=== PATIENT | female | born 1970 | race Caucasian/White ===

== ENCOUNTER 2021-01-19 10:11 | Outpatient (CLI) | payer OTHER, SELFPAY ==
[2021-01-19 10:24] LABS: Basophils Absolute Auto 0.06 K/mm3 (0.00-0.10); Basophils Percent Auto 0.6 % (0.0-1.0); Eosinophils Absolute Auto 0.16 K/mm3 (0.02-0.50); Eosinophils Percent Auto 1.7 % (1.0-6.0); Hematocrit 41.7 % (35.0-49.0); Hemoglobin 13.7 g/dL (12.0-15.0); Immature Granulocyte Absolute 0.04 K/mm3 (0.00-0.00); Immature Granulocyte Percent A 0.4 % (0.0-0.0); Lymphocytes Absolute Auto 2.76 K/mm3 (1.10-4.50); Lymphocytes Percent Auto 28.5 % (18.0-42.0); Mean Corpuscular HGB Conc 32.9 g/dL (32.0-36.0); Mean Corpuscular Hemoglobin 32.2 pg (27.0-31.0); Mean Corpuscular Volume 97.9 fL (78.0-102.0); Mean Platelet Volume 9.4 fl (9.2-11.8); Monocytes Absolute Auto 0.59 K/mm3 (0.10-0.90); Monocytes Percent Auto 6.1 % (2.0-11.0); Neutrophils Absolute Auto 6.1 K/mm3 (1.7-7.2); Neutrophils Percent Auto 62.7 % (50.0-70.0); Platelet Count Result 301 K/mm3 (150-420); Red Blood Count 4.26 M/mm3 (4.20-5.40); Red Cell Distribution Width 14.1 % (11.6-14.4); White Blood Count 9.7 K/mm3 (4.8-10.8)
[2021-01-19 10:25] LABS: Add Urine Microscopic? NO; Appearance Urine Clear (Clear); Bilirubin Urine Negative (Negative); Blood Urine Negative (Negative); Color Urine Yellow (Yellow); Glucose Urine UA Negative (Negative); Ketones Urine Negative (Negative); Leukocyte Esterase Ur Negative LEU/UL (Negative); Nitrate Urine Negative (Negative); Protein Urine Negative (Negative); Specific Grav Ur 1.025 (1.010-1.020); Urobilinogen Urine 0.2 mg/dL (0.2-1.0); pH Urine 5.5 (5.0-8.0)
[2021-01-19 11:23] LABS: Alanine Aminotransferase 44 U/L (14-59); Albumin Level 3.6 g/dL (3.4-5.0); Alkaline Phosphatase 65 U/L (46-116); Anion Gap 7 mmol/L (8-16); Aspartate Amino Transferase 21 U/L (15-37); Bilirubin,Total 0.2 mg/dL (0.00-1.00); Blood Urea Nitrogen 13 mg/dL (7-18); Calcium 9.1 mg/dL (8.5-10.1); Carbon Dioxide 27 mmol/L (21-32); Chloride 102 mmol/L (98-108); Cholesterol 232 mg/dL (0-200); Estimated Glomerular Filt Rate > 60; Glucose 95 mg/dL (70-99); HDL Direct 47 mg/dL (40-60); LDL Cholesterol Calculated 140 mg/dL (<130); Osmolality Calculated 282 mOsm/kg (285-295); Potassium 4.4 mmol/L (3.5-5.1); Sodium 136 mmol/L (136-145); Thyroid Stimulating Hormone 2.35 uIU/mL (0.36-3.74); Total Protein 6.7 g/dL (6.4-8.2); Triglycerides 227 mg/dL (0-150)
[2021-01-19 11:42] LABS: Free T4 Free Thyroxine 0.85 ng/dL (0.76-1.46)
[2021-01-24 08:48] LABS: Immunoglobulin E 10 kU/L (<=114)
[2021-01-24 20:44] LABS: Immunoglobulin A 242 mg/dL (47-310); Immunoglobulin G 453 mg/dL (600-1640); Immunoglobulin M 168 mg/dL (50-300)
== END 2021-01-19 10:12 | disposition home or self-care (01) ==
PROVIDERS: PCP Internal Medicine; Visit Provider Internal Medicine
DX: Z00.00 Encounter for general adult medical examination without abnormal findings (principal); D80.9 Immunodeficiency with predominantly antibody defects, unspecified
CPT/HCPCS: 36415; 80053; 80061; 81003; 82784; 82785; 84439; 84443; 85025

== ENCOUNTER 2021-07-13 07:25 | Outpatient (CLI) | payer OTHER, SELFPAY ==
[2021-07-13 07:38] LABS: Add Urine Microscopic? NO; Appearance Urine Clear (Clear); Basophils Absolute Auto 0.07 K/mm3 (0.00-0.10); Basophils Percent Auto 0.7 % (0.0-1.0); Bilirubin Urine Negative (Negative); Blood Urine Negative (Negative); Color Urine Light Yellow (Yellow); Eosinophils Absolute Auto 0.18 K/mm3 (0.02-0.50); Eosinophils Percent Auto 1.7 % (1.0-6.0); Glucose Urine UA Negative (Negative); Hematocrit 47.7 % (35.0-49.0); Hemoglobin 15.4 g/dL (12.0-15.0); Immature Granulocyte Absolute 0.03 K/mm3 (0.00-0.00); Immature Granulocyte Percent A 0.3 % (0.0-0.0); Ketones Urine Negative (Negative); Leukocyte Esterase Ur Negative (Negative); Lymphocytes Absolute Auto 2.87 K/mm3 (1.10-4.50); Mean Corpuscular HGB Conc 32.3 g/dL (32.0-36.0); Mean Corpuscular Hemoglobin 31.2 pg (27.0-31.0); Mean Corpuscular Volume 96.8 fL (78.0-102.0); Mean Platelet Volume 9.5 fl (9.2-11.8); Monocytes Absolute Auto 0.69 K/mm3 (0.10-0.90); Monocytes Percent Auto 6.5 % (2.0-11.0); Neutrophils Absolute Auto 6.8 K/mm3 (1.7-7.2); Neutrophils Percent Auto 63.8 % (50.0-70.0); Nitrate Urine Negative (Negative); Platelet Count Result 348 K/mm3 (150-420); Protein Urine Negative (Negative); Red Blood Count 4.93 M/mm3 (4.20-5.40); Red Cell Distribution Width 14.2 % (11.6-14.4); Specific Grav Ur 1.015 (1.010-1.020); Urobilinogen Urine 0.2 mg/dL (0.2-1.0); White Blood Count 10.6 K/mm3 (4.8-10.8); pH Urine 5.5 (5.0-8.0)
[2021-07-13 08:47] LABS: Alanine Aminotransferase 39 U/L (14-59); Albumin Level 3.9 g/dL (3.4-5.0); Alkaline Phosphatase 78 U/L (46-116); Anion Gap 8 mmol/L (8-16); Aspartate Amino Transferase 15 U/L (15-37); Bilirubin,Total 0.3 mg/dL (0.00-1.00); Blood Urea Nitrogen 15 mg/dL (7-18); Calcium 9.3 mg/dL (8.5-10.1); Carbon Dioxide 29 mmol/L (21-32); Chloride 102 mmol/L (98-108); Cholesterol 267 mg/dL (0-200); Estimated Glomerular Filt Rate > 60; Glucose 100 mg/dL (70-99); HDL Direct 52 mg/dL (40-60); LDL Cholesterol Calculated 158 mg/dL (<130); Osmolality Calculated 288 mOsm/kg (285-295); Potassium 4.3 mmol/L (3.5-5.1); Sodium 139 mmol/L (136-145); Total Protein 7.1 g/dL (6.4-8.2); Triglycerides 283 mg/dL (0-150)
[2021-07-17 11:14] LABS: Immunoglobulin A 266 mg/dL (47-310); Immunoglobulin G 496 mg/dL (600-1640); Immunoglobulin M 191 mg/dL (50-300)
== END 2021-07-13 07:26 | disposition home or self-care (01) ==
LOC: CHSLAB 07:27
PROVIDERS: PCP Internal Medicine; Visit Provider Internal Medicine
DX: E78.2 Mixed hyperlipidemia (principal); I10 Essential (primary) hypertension; D80.9 Immunodeficiency with predominantly antibody defects, unspecified
CPT/HCPCS: 36415; 80053; 80061; 81003; 82784; 85025

== ENCOUNTER 2021-07-30 10:19 | Outpatient (CLI) | payer OTHER, SELFPAY ==
--- NOTE | ~2021-07-30 | CT_ITS ---
EXAMINATION:CT diagnostic chest wo con DATE: 07/30/2021 10:40 INDICATION: Shortness of breath. Lung nodule. TECHNIQUE: Computed tomography (CT) of the chest was performed without intravenous contrast. Automate d exposure control and iterative reconstruction technique were employed. The dose-length product (DLP ) was 66.96 mGy-cm. COMPARISON: Chest CT 09/23/2018 FINDINGS: There is mild emphysema. There is mild atelectasis bilaterally. There is a 7 mm nodule in r ight middle lobe. There is a 3 mm nodule in right upper lobe. There are two 3 mm nodules in left uppe r lobe. These findings are stable from 09/23/18. A calcified right lung nodule is consistent with old granulomatous disease. No pleural effusion. The heart size is normal. No pericardial effusion. There is mild emphysema. There is a benign bone island in T7 vertebral body. IMPRESSION: 1. Chronic pulmonary nodules, consistent with granulomatous disease. 2. Mild emphysema. Reviewed, dictated and finalized at location A.
== END 2021-07-30 10:20 | disposition home or self-care (01) ==
LOC: CHSIMG 10:20
PROVIDERS: PCP Internal Medicine; Visit Provider Internal Medicine
DX: R91.1 Solitary pulmonary nodule (principal)
CPT/HCPCS: 71250

== ENCOUNTER 2021-07-31 09:05 | Outpatient (CLI) | payer OTHER, SELFPAY | END 2021-07-31 09:06 | disposition home or self-care (01) | LOC: CHSCARD 09:06 | PROVIDERS: PCP Internal Medicine; Visit Provider Internal Medicine | DX: R05.9 Cough, unspecified (principal); R06.02 Shortness of breath | CPT/HCPCS: 94060; 94726; 94729; 95012 ==

== ENCOUNTER 2021-09-21 14:15 | Outpatient (CLI) | payer OTHER, SELFPAY ==
[2021-09-21 15:42] LABS: HIV 1 P24 AG Negative (Negative); HIV 1/2 AB Negative (Negative)
[2021-09-25 12:14] LABS: Immunoglobulin G, Serum 496 mg/dL (600-1640); Immunoglobulin G1 273 mg/dL (382-929); Immunoglobulin G2 138 mg/dL (241-700); Immunoglobulin G3 55 mg/dL (22-178); Immunoglobulin G4 11.2 mg/dL (4.0-86.0)
[2021-09-26 02:44] LABS: Absolute CD4 Count 2069 cells/uL (490-1740); Lymphocytes, Absolute 3063 cells/uL (850-3900); Percent CD4 Cells 68 % (30-61)
== END 2021-09-21 14:16 | disposition home or self-care (01) ==
LOC: CHSLAB 14:17
PROVIDERS: PCP Internal Medicine; Visit Provider Internal Medicine Hematology & Oncology
DX: D80.3 Selective deficiency of immunoglobulin G [IgG] subclasses (principal)
CPT/HCPCS: 36415; 82784; 82787; 86361; 86703

== ENCOUNTER 2021-09-25 08:46 | Outpatient (CLI) | payer OTHER, SELFPAY ==
--- NOTE | 2021-09-25 11:00 | NEURO_ITS ---
Impression: # Complains of numbness of thumb and pointing finger. # No Carpal Tunnel Syndrome or ulnar neuropathy. # Normal needle/EMG exam. # Clinical correlation recommended. Nerve Conduction Studies Anti Sensory Summary Table Stim Site NR Peak (ms) P-T Amp (?V) Site1 Site2 Delta-P (ms) Dist (cm) Rell (m/s) Right Median Anti Sensory (2-3nd Digit) Wrist 2.5 90.4 Wrist 2-3nd Digit 2.5 14.0 56 Wrist 2.4 98.9 Wrist 2-3nd Digit 2.5 14.0 56 Right Radial Anti Sensory (Base 1st Digit) Wrist 1.9 46.9 Wrist Base 1st Digit 1.9 0.0 Right Ulnar Anti Sensory (5th Digit) Wrist 2.3 73.5 Wrist 5th Digit 2.3 14.0 61 Motor Summary Table Stim Site NR Onset (ms) O-P Amp (mV) Site1 Site2 Delta-0 (ms) Dist (cm) Rell (m/s) Right Median Motor (Abd Poll Brev) Wrist 2.6 8.6 Elbow Wrist 4.4 26.0 59 Elbow 7.0 4.9 Right Ulnar Motor (Abd Dig Minimi) Wrist 2.6 8.3 A Elbow Wrist 4.0 25.0 63 A Elbow 6.6 6.7 F Wave Studies NR F-Lat (ms) L-R F-Lat (ms) Right Median (Mrkrs) (Abd Poll Brev) 24.97 Right Ulnar (Mrkrs) (Abd Dig Min) 25.92 EMG Side Muscle Nerve Root Ins Act Fibs Amp Dur Recrt Comment Right 1stDorInt Ulnar C8-T1 Nml Nml Nml Nml Nml Right Ext Indicis Radial (Post Int) C7-8 Nml Nml Nml Nml Nml Right Ext Digitorum Radial (Post Int) C7-8 Nml Nml Nml Nml Nml Right BrachioRad Radial C5-6 Nml Nml Nml Nml Nml Right PronatorTeres Median C6-7 Nml Nml Nml Nml Nml Right Abd Poll Brev Median C8-T1 Nml Nml Nml Nml Nml Right ABD Dig Min Ulnar C8-T1 Nml Nml Nml Nml Nml Right Abd Poll Long Radial (Post Int) C7-8 Nml Nml Nml Nml Nml MTDD
== END 2021-09-25 08:47 | disposition home or self-care (01) ==
LOC: ANHNEURO 08:49
PROVIDERS: PCP Internal Medicine; Visit Provider Internal Medicine
DX: G56.01 Carpal tunnel syndrome, right upper limb (principal)
CPT/HCPCS: 95886; 95909

== ENCOUNTER 2021-10-29 13:52 | Outpatient (CLI) | payer OTHER, SELFPAY ==
[2021-10-29 14:19] LABS: Basophils Absolute Auto 0.09 K/mm3 (0.00-0.10); Basophils Percent Auto 0.7 % (0.0-1.0); Eosinophils Absolute Auto 0.12 K/mm3 (0.02-0.50); Eosinophils Percent Auto 0.9 % (1.0-6.0); Hematocrit 44.1 % (35.0-49.0); Hemoglobin 14.5 g/dL (12.0-15.0); Immature Granulocyte Absolute 0.03 K/mm3 (0.00-0.00); Immature Granulocyte Percent A 0.2 % (0.0-0.0); Lymphocytes Absolute Auto 3.39 K/mm3 (1.10-4.50); Lymphocytes Percent Auto 26.3 % (18.0-42.0); Mean Corpuscular HGB Conc 32.9 g/dL (32.0-36.0); Mean Corpuscular Hemoglobin 31.7 pg (27.0-31.0); Mean Corpuscular Volume 96.5 fL (78.0-102.0); Mean Platelet Volume 9.6 fl (9.2-11.8); Monocytes Absolute Auto 0.92 K/mm3 (0.10-0.90); Monocytes Percent Auto 7.1 % (2.0-11.0); Neutrophils Absolute Auto 8.3 K/mm3 (1.7-7.2); Neutrophils Percent Auto 64.8 % (50.0-70.0); Platelet Count Result 356 K/mm3 (150-420); Red Blood Count 4.57 M/mm3 (4.20-5.40); Red Cell Distribution Width 14.5 % (11.6-14.4); White Blood Count 12.9 K/mm3 (4.8-10.8)
[2021-10-29 14:49] LABS: Alanine Aminotransferase 34 U/L (14-59); Albumin Level 4.2 g/dL (3.4-5.0); Alkaline Phosphatase 76 U/L (46-116); Anion Gap 13 mmol/L (8-16); Aspartate Amino Transferase 16 U/L (15-37); Bilirubin,Total 0.3 mg/dL (0.00-1.00); Blood Urea Nitrogen 9 mg/dL (7-18); Calcium 9.5 mg/dL (8.5-10.1); Carbon Dioxide 27 mmol/L (21-32); Chloride 98 mmol/L (98-108); Estimated Glomerular Filt Rate > 60; Glucose 84 mg/dL (70-99); Osmolality Calculated 283 mOsm/kg (285-295); Potassium 3.6 mmol/L (3.5-5.1); Sodium 138 mmol/L (136-145); Total Protein 7.4 g/dL (6.4-8.2)
[2021-11-01 14:19] LABS: Immunoglobulin A 256 mg/dL (47-310); Immunoglobulin G 515 mg/dL (600-1640); Immunoglobulin M 177 mg/dL (50-300)
== END 2021-10-29 13:53 | disposition home or self-care (01) ==
LOC: CHSLAB 13:54
PROVIDERS: PCP Internal Medicine; Visit Provider Internal Medicine Hematology & Oncology
DX: D80.1 Nonfamilial hypogammaglobulinemia (principal)
CPT/HCPCS: 36415; 80053; 82784; 85025

== ENCOUNTER 2021-11-02 07:07 | Outpatient (CLI) | payer OTHER, SELFPAY ==
[2021-11-02 07:47] LABS: Hemoglobin A1C 5.4 % (<5.7)
[2021-11-02 08:02] LABS: Alanine Aminotransferase 31 U/L (14-59); Albumin Level 3.5 g/dL (3.4-5.0); Alkaline Phosphatase 65 U/L (46-116); Anion Gap 10 mmol/L (8-16); Aspartate Amino Transferase 13 U/L (15-37); Bilirubin,Total 0.2 mg/dL (0.00-1.00); Blood Urea Nitrogen 16 mg/dL (7-18); Calcium 9.2 mg/dL (8.5-10.1); Carbon Dioxide 26 mmol/L (21-32); Chloride 104 mmol/L (98-108); Estimated Glomerular Filt Rate > 60; Glucose 99 mg/dL (70-99); Osmolality Calculated 291 mOsm/kg (285-295); Potassium 4.5 mmol/L (3.5-5.1); Sodium 140 mmol/L (136-145); Total Protein 6.7 g/dL (6.4-8.2)
[2021-11-02 09:50] LABS: Bilirubin Direct < 0.1 mg/dL (0-0.2)
[2021-11-02 15:25] LABS: Cholesterol 167 mg/dL (0-200); HDL Direct 53 mg/dL (40-60); LDL Cholesterol Calculated 74 mg/dL (<130); Triglycerides 198 mg/dL (0-150)
== END 2021-11-02 07:08 | disposition home or self-care (01) ==
LOC: CHSLAB 07:08
PROVIDERS: PCP Internal Medicine; Visit Provider Internal Medicine
DX: E78.2 Mixed hyperlipidemia (principal); R73.01 Impaired fasting glucose; E78.5 Hyperlipidemia, unspecified
CPT/HCPCS: 36415; 80053; 80061; 82248; 83036

== ENCOUNTER 2021-11-26 10:57 | Outpatient (CLI) | payer OTHER, SELFPAY ==
[2021-11-26 11:16] LABS: Basophils Absolute Auto 0.07 K/mm3 (0.00-0.10); Basophils Percent Auto 0.6 % (0.0-1.0); Eosinophils Absolute Auto 0.14 K/mm3 (0.02-0.50); Eosinophils Percent Auto 1.2 % (1.0-6.0); Hematocrit 45.5 % (35.0-49.0); Hemoglobin 15.2 g/dL (12.0-15.0); Immature Granulocyte Absolute 0.05 K/mm3 (0.00-0.00); Immature Granulocyte Percent A 0.4 % (0.0-0.0); Lymphocytes Absolute Auto 2.99 K/mm3 (1.10-4.50); Lymphocytes Percent Auto 26.4 % (18.0-42.0); Mean Corpuscular HGB Conc 33.4 g/dL (32.0-36.0); Mean Corpuscular Hemoglobin 31.9 pg (27.0-31.0); Mean Corpuscular Volume 95.6 fL (78.0-102.0); Mean Platelet Volume 9.5 fl (9.2-11.8); Monocytes Absolute Auto 0.68 K/mm3 (0.10-0.90); Neutrophils Absolute Auto 7.4 K/mm3 (1.7-7.2); Neutrophils Percent Auto 65.4 % (50.0-70.0); Platelet Count Result 319 K/mm3 (150-420); Red Blood Count 4.76 M/mm3 (4.20-5.40); Red Cell Distribution Width 14.1 % (11.6-14.4); White Blood Count 11.3 K/mm3 (4.8-10.8)
[2021-11-26 11:52] LABS: Alanine Aminotransferase 32 U/L (14-59); Albumin Level 4.2 g/dL (3.4-5.0); Alkaline Phosphatase 77 U/L (46-116); Anion Gap 14 mmol/L (8-16); Aspartate Amino Transferase 12 U/L (15-37); Bilirubin,Total 0.3 mg/dL (0.00-1.00); Blood Urea Nitrogen 11 mg/dL (7-18); Calcium 10.1 mg/dL (8.5-10.1); Carbon Dioxide 26 mmol/L (21-32); Chloride 96 mmol/L (98-108); Estimated Glomerular Filt Rate > 60; Glucose 96 mg/dL (70-99); Osmolality Calculated 281 mOsm/kg (285-295); Potassium 4.2 mmol/L (3.5-5.1); Sodium 136 mmol/L (136-145); Total Protein 7.7 g/dL (6.4-8.2)
[2021-11-28 21:17] LABS: Immunoglobulin A 265 mg/dL (47-310); Immunoglobulin G 522 mg/dL (600-1640); Immunoglobulin M 180 mg/dL (50-300)
== END 2021-11-26 10:58 | disposition home or self-care (01) ==
LOC: CHSLAB 10:59
PROVIDERS: PCP Internal Medicine; Visit Provider Internal Medicine Hematology & Oncology
DX: D80.3 Selective deficiency of immunoglobulin G [IgG] subclasses (principal)
CPT/HCPCS: 36415; 80053; 82784; 85025

== ENCOUNTER 2021-11-27 09:08 | Outpatient (CLI) | payer OTHER, SELFPAY ==
[2021-11-27 09:17] VITALS: BMI 29.6
[2021-11-27] MEDS: ACETAMINOPHEN 325 MG TABLET 650 MG PO (09:36)
[2021-11-27] MEDS: diphenhydrAMINE HCl CAP 25 MG CAPSULE PO (09:36)
[2021-11-27 09:37] VITALS: BP 142/85; PULSE 80; RESP 14; TEMP 36.4; O2SAT 98
[2021-11-27] MEDS: IMMUNE GLOBULIN 200 ML IVPB (09:45)
[2021-11-27 10:15] VITALS: BP 152/84; PULSE 78; RESP 14; O2SAT 98
[2021-11-27 10:45] VITALS: BP 148/80; PULSE 78; RESP 14
[2021-11-27 11:15] VITALS: BP 142/80; PULSE 72; RESP 14
[2021-11-27 11:45] VITALS: BP 143/82; PULSE 80; RESP 14
[2021-11-27 12:35] VITALS: BP 142/85; PULSE 80; RESP 14; O2SAT 98
--- NOTE | 2021-11-27 12:36 | PC.NURSE ---
Patient here for IVIG infusion. Education given. No concerns voiced. IVIG infusion administered SEE DEC. Tolerated well. Safe exit of hospital. Will return December 28, 2021 at 11 a.m. for next monthly dose.
== END 2021-11-27 09:09 | disposition home or self-care (01) ==
LOC: CHSTREATRM 09:10
PROVIDERS: PCP Internal Medicine; Visit Provider Internal Medicine Hematology & Oncology
DX: D80.1 Nonfamilial hypogammaglobulinemia (principal)
CPT/HCPCS: 96365; 96366; A9270; J1459

== ENCOUNTER 2021-12-13 07:13 | Outpatient (CLI) | payer OTHER, SELFPAY ==
--- NOTE | ~2021-12-13 | MM_ITS ---
EXAMINATION: MM screening leidy BI w cristel HISTORY: Screening mammogram TECHNIQUE: Craniocaudal and mediolateral oblique 3-D tomosynthesis images were obtained and synthetic 2-D images were generated. CAD analysis was submitted and interpreted. COMPARISON: 02/11/2012 bilateral screening mammogram BREAST PARENCHYMAL COMPOSITION: There are scattered areas of fibroglandular density. FINDINGS: There is no evidence of suspicious mass, calcification, or architectural distortion to sugg est malignancy in either breast. There has been no suspicious interval change. IMPRESSION: 1. No mammographic evidence of malignancy. 2. Recommend routine screening mammography in one year. BI-RADS Category 1: Negative Reviewed, dictated and finalized at location A. 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
== END 2021-12-13 07:14 | disposition home or self-care (01) ==
LOC: CHSIMG 07:14
PROVIDERS: PCP Internal Medicine; Visit Provider Obstetrics & Gynecology
DX: Z12.31 Encounter for screening mammogram for malignant neoplasm of breast (principal)
CPT/HCPCS: 77063; 77067

== ENCOUNTER 2021-12-24 16:13 | Outpatient (CLI) | payer OTHER, SELFPAY ==
[2021-12-24 17:25] LABS: Basophils Absolute Auto 0.07 K/mm3 (0.00-0.10); Basophils Percent Auto 0.6 % (0.0-1.0); Eosinophils Absolute Auto 0.14 K/mm3 (0.02-0.50); Eosinophils Percent Auto 1.3 % (1.0-6.0); Hematocrit 43.3 % (35.0-49.0); Hemoglobin 13.9 g/dL (12.0-15.0); Immature Granulocyte Absolute 0.03 K/mm3 (0.00-0.00); Immature Granulocyte Percent A 0.3 % (0.0-0.0); Lymphocytes Absolute Auto 3.53 K/mm3 (1.10-4.50); Lymphocytes Percent Auto 32.4 % (18.0-42.0); Mean Corpuscular HGB Conc 32.1 g/dL (32.0-36.0); Mean Corpuscular Hemoglobin 30.9 pg (27.0-31.0); Mean Corpuscular Volume 96.2 fL (78.0-102.0); Mean Platelet Volume 9.5 fl (9.2-11.8); Monocytes Absolute Auto 0.73 K/mm3 (0.10-0.90); Monocytes Percent Auto 6.7 % (2.0-11.0); Neutrophils Absolute Auto 6.4 K/mm3 (1.7-7.2); Neutrophils Percent Auto 58.7 % (50.0-70.0); Platelet Count Result 347 K/mm3 (150-420); White Blood Count 10.9 K/mm3 (4.8-10.8)
[2021-12-24 17:39] LABS: Alanine Aminotransferase 33 U/L (14-59); Albumin Level 3.8 g/dL (3.4-5.0); Alkaline Phosphatase 73 U/L (46-116); Anion Gap 13 mmol/L (8-16); Aspartate Amino Transferase 18 U/L (15-37); Bilirubin,Total 0.2 mg/dL (0.00-1.00); Blood Urea Nitrogen 9 mg/dL (7-18); Calcium 9.2 mg/dL (8.5-10.1); Carbon Dioxide 27 mmol/L (21-32); Chloride 102 mmol/L (98-108); Estimated Glomerular Filt Rate > 60; Glucose 114 mg/dL (70-99); Osmolality Calculated 293 mOsm/kg (285-295); Potassium 3.8 mmol/L (3.5-5.1); Sodium 142 mmol/L (136-145); Total Protein 7.1 g/dL (6.4-8.2)
[2021-12-27 11:46] LABS: Immunoglobulin A 245 mg/dL (47-310); Immunoglobulin G 600 mg/dL (600-1640); Immunoglobulin M 172 mg/dL (50-300)
== END 2021-12-24 16:14 | disposition home or self-care (01) ==
LOC: CHSLAB 16:14
PROVIDERS: PCP Internal Medicine; Visit Provider Internal Medicine Hematology & Oncology
DX: D80.3 Selective deficiency of immunoglobulin G [IgG] subclasses (principal)
CPT/HCPCS: 36415; 80053; 82784; 85025

== ENCOUNTER 2021-12-28 10:38 | Outpatient (CLI) | payer OTHER, SELFPAY ==
[2021-12-28] MEDS: ACETAMINOPHEN 325 MG TABLET 650 MG PO (10:48)
[2021-12-28] MEDS: diphenhydrAMINE HCl CAP 25 MG CAPSULE PO (10:48)
[2021-12-28 11:03] VITALS: BMI 29.6
[2021-12-28 11:04] VITALS: BP 160/80; PULSE 80; RESP 14; TEMP 36.4; O2SAT 98
[2021-12-28 11:50] VITALS: BP 135/88; PULSE 72; RESP 14; O2SAT 98
[2021-12-28 12:20] VITALS: BP 137/85; PULSE 80; RESP 14; O2SAT 97
[2021-12-28 13:00] VITALS: BP 138/85; PULSE 80; RESP 14; O2SAT 98
--- NOTE | 2021-12-28 13:52 | PC.NURSE ---
Patient here for monthly IVIG infusion. Education on medication given. No concerns voiced. IVIG administered- See MAR. tolerated well. Safe exit of hospital. Will return January 25, 2021 1100.
== END 2021-12-28 10:39 | disposition home or self-care (01) ==
PROVIDERS: PCP Internal Medicine; Visit Provider Internal Medicine Hematology & Oncology
DX: D80.1 Nonfamilial hypogammaglobulinemia (principal)
CPT/HCPCS: 96365; 96366; A9270; J1459

== ENCOUNTER 2022-01-28 16:30 | Outpatient (CLI) | payer OTHER, SELFPAY ==
[2022-01-28 17:08] LABS: Basophils Absolute Auto 0.06 K/mm3 (0.00-0.10); Basophils Percent Auto 0.7 % (0.0-1.0); Eosinophils Absolute Auto 0.09 K/mm3 (0.02-0.50); Eosinophils Percent Auto 1.1 % (1.0-6.0); Hematocrit 38.5 % (35.0-49.0); Hemoglobin 12.5 g/dL (12.0-15.0); Immature Granulocyte Absolute 0.03 K/mm3 (0.00-0.00); Immature Granulocyte Percent A 0.4 % (0.0-0.0); Lymphocytes Absolute Auto 3.44 K/mm3 (1.10-4.50); Lymphocytes Percent Auto 41.1 % (18.0-42.0); Mean Corpuscular HGB Conc 32.5 g/dL (32.0-36.0); Mean Corpuscular Hemoglobin 31.5 pg (27.0-31.0); Mean Platelet Volume 9.9 fl (9.2-11.8); Monocytes Absolute Auto 0.58 K/mm3 (0.10-0.90); Monocytes Percent Auto 6.9 % (2.0-11.0); Neutrophils Absolute Auto 4.2 K/mm3 (1.7-7.2); Neutrophils Percent Auto 49.8 % (50.0-70.0); Platelet Count Result 332 K/mm3 (150-420); Red Blood Count 3.97 M/mm3 (4.20-5.40); Red Cell Distribution Width 14.3 % (11.6-14.4); White Blood Count 8.4 K/mm3 (4.8-10.8)
[2022-01-28 17:24] LABS: Alanine Aminotransferase 23 U/L (14-59); Albumin Level 3.4 g/dL (3.4-5.0); Alkaline Phosphatase 66 U/L (46-116); Anion Gap 8 mmol/L (8-16); Aspartate Amino Transferase 15 U/L (15-37); Bilirubin,Total 0.1 mg/dL (0.00-1.00); Blood Urea Nitrogen 9 mg/dL (7-18); Calcium 8.5 mg/dL (8.5-10.1); Carbon Dioxide 26 mmol/L (21-32); Chloride 106 mmol/L (98-108); Estimated Glomerular Filt Rate > 60; Glucose 86 mg/dL (70-99); Osmolality Calculated 287 mOsm/kg (285-295); Potassium 3.7 mmol/L (3.5-5.1); Sodium 140 mmol/L (136-145); Total Protein 6.4 g/dL (6.4-8.2)
[2022-01-31 13:01] LABS: Immunoglobulin A 226 mg/dL (47-310); Immunoglobulin G 539 mg/dL (600-1640); Immunoglobulin M 154 mg/dL (50-300)
== END 2022-01-28 16:31 | disposition home or self-care (01) ==
LOC: CHSLAB 16:32
PROVIDERS: PCP Internal Medicine; Visit Provider Internal Medicine Hematology & Oncology
DX: D80.3 Selective deficiency of immunoglobulin G [IgG] subclasses (principal)
CPT/HCPCS: 36415; 80053; 82784; 85025

== ENCOUNTER 2022-02-01 14:03 | Outpatient (CLI) | payer OTHER, SELFPAY ==
[2022-02-01] MEDS: diphenhydrAMINE HCl CAP 25 MG CAPSULE PO (14:10)
[2022-02-01] MEDS: ACETAMINOPHEN 325 MG TABLET 650 MG PO (14:10)
[2022-02-01] MEDS: IMMUNE GLOBULIN 200 ML IVPB (14:15)
[2022-02-01 14:32] VITALS: BMI 29.6
[2022-02-01 14:33] VITALS: BP 135/88; PULSE 78; RESP 14; TEMP 36.6; O2SAT 98
[2022-02-01 14:45] VITALS: BP 161/85; PULSE 80; RESP 14; TEMP 36.6; O2SAT 98
[2022-02-01 15:15] VITALS: BP 139/80; PULSE 80; RESP 14; O2SAT 98
--- NOTE | 2022-02-01 16:16 | PC.NURSE ---
Patient here for monthly IVIG infusion. Education given. No concerns voiced. Reports done well with last two infusions. IVIG administered. SEE MAR. Tolerated well. Safe exit of hospital. Will return March 01, 2022 at 1445.
[2022-02-01 16:26] VITALS: BP 130/74; PULSE 88; RESP 14; O2SAT 98
== END 2022-02-01 14:04 | disposition home or self-care (01) ==
LOC: CHSTREATRM 14:05
PROVIDERS: PCP Internal Medicine; Visit Provider Internal Medicine Hematology & Oncology
DX: D80.1 Nonfamilial hypogammaglobulinemia (principal)
CPT/HCPCS: 96365; 96366; A9270; J1459

== ENCOUNTER 2022-02-26 17:06 | Outpatient (CLI) | payer OTHER, SELFPAY ==
[2022-02-26 17:33] LABS: Basophils Absolute Auto 0.07 K/mm3 (0.00-0.10); Basophils Percent Auto 0.9 % (0.0-1.0); Eosinophils Absolute Auto 0.19 K/mm3 (0.02-0.50); Eosinophils Percent Auto 2.4 % (1.0-6.0); Hematocrit 39.3 % (35.0-49.0); Hemoglobin 12.8 g/dL (12.0-15.0); Immature Granulocyte Absolute 0.03 K/mm3 (0.00-0.00); Immature Granulocyte Percent A 0.4 % (0.0-0.0); Lymphocytes Absolute Auto 2.98 K/mm3 (1.10-4.50); Lymphocytes Percent Auto 37.3 % (18.0-42.0); Mean Corpuscular HGB Conc 32.6 g/dL (32.0-36.0); Mean Corpuscular Hemoglobin 31.8 pg (27.0-31.0); Mean Corpuscular Volume 97.8 fL (78.0-102.0); Mean Platelet Volume 9.6 fl (9.2-11.8); Monocytes Absolute Auto 0.59 K/mm3 (0.10-0.90); Monocytes Percent Auto 7.4 % (2.0-11.0); Neutrophils Absolute Auto 4.1 K/mm3 (1.7-7.2); Neutrophils Percent Auto 51.6 % (50.0-70.0); Platelet Count Result 281 K/mm3 (150-420); Red Blood Count 4.02 M/mm3 (4.20-5.40); Red Cell Distribution Width 15.4 % (11.6-14.4)
[2022-02-26 17:43] LABS: Alanine Aminotransferase 19 U/L (14-59); Albumin Level 3.6 g/dL (3.4-5.0); Alkaline Phosphatase 64 U/L (46-116); Anion Gap 12 mmol/L (8-16); Aspartate Amino Transferase 26 U/L (15-37); Bilirubin,Total 0.3 mg/dL (0.00-1.00); Blood Urea Nitrogen 8 mg/dL (7-18); Calcium 8.1 mg/dL (8.5-10.1); Carbon Dioxide 22 mmol/L (21-32); Chloride 105 mmol/L (98-108); Estimated Glomerular Filt Rate > 60; Glucose 95 mg/dL (70-99); Osmolality Calculated 286 mOsm/kg (285-295); Potassium 3.4 mmol/L (3.5-5.1); Sodium 139 mmol/L (136-145)
[2022-03-01 11:56] LABS: Immunoglobulin A 242 mg/dL (47-310); Immunoglobulin G 636 mg/dL (600-1640); Immunoglobulin M 170 mg/dL (50-300)
== END 2022-02-26 17:07 | disposition home or self-care (01) ==
PROVIDERS: PCP Internal Medicine; Visit Provider Internal Medicine Hematology & Oncology
DX: D80.3 Selective deficiency of immunoglobulin G [IgG] subclasses (principal)
CPT/HCPCS: 36415; 80053; 82784; 85025

== ENCOUNTER 2022-03-01 14:40 | Outpatient (CLI) | payer OTHER, SELFPAY ==
[2022-03-01 14:51] VITALS: BMI 29.6
[2022-03-01 15:15] VITALS: BP 160/80; PULSE 80; RESP 16; TEMP 36.4; O2SAT 98
[2022-03-01] MEDS: ACETAMINOPHEN 325 MG TABLET 650 MG PO (15:15)
[2022-03-01] MEDS: diphenhydrAMINE HCl CAP 25 MG CAPSULE PO (15:15)
[2022-03-01] MEDS: IMMUNE GLOBULIN 200 ML IVPB (15:25)
[2022-03-01 15:55] VITALS: BP 162/88; PULSE 80; RESP 14; O2SAT 98
[2022-03-01 16:25] VITALS: BP 156/88; PULSE 80; RESP 14; O2SAT 97
[2022-03-01 17:30] VITALS: BP 169/80; PULSE 78; RESP 14; O2SAT 97
--- NOTE | 2022-03-01 17:45 | PC.NURSE ---
Patient here for monthly IVIG infusion. No concerns voiced. IVIG infusion administered see DEC. Tolerated well. Will return March 29, 2022 for next IVIG infusion at 1430. Safe exit of hospital.
== END 2022-03-01 14:41 | disposition home or self-care (01) ==
LOC: CHSTREATRM 14:42
PROVIDERS: PCP Internal Medicine; Visit Provider Internal Medicine Hematology & Oncology
DX: D80.1 Nonfamilial hypogammaglobulinemia (principal)
CPT/HCPCS: 96365; 96366; A9270; J1459

== ENCOUNTER 2022-03-06 20:08 | Emergency (ER) | payer OTHER, SELFPAY ==
--- NOTE | ~2022-03-06 | XR_ITS ---
EXAM: XR ankle RT min 3V, XR foot RT min 3V DATE: 03/06/2022 20:56 HISTORY: lateral ankle and foot pain after fall today . COMPARISON: None available. FINDINGS: Normal mineralization. No fracture or dislocation. No lytic or blastic lesion. Joint space s are maintained. Os navicularis. No erosion or periosteal change. Soft tissues within normal limits. IMPRESSION: No acute osseous finding in the right ankle or foot. Reviewed, dictated and finalized at location K. IMPRESSION: No acute osseous finding in the right ankle or foot.
--- NOTE | 2022-03-06 20:30 | ED.LOWEXIN ---
HPI - Extremity Injury (Lower) General Chief Complaint: Fall Stated Complaint: fall down stairs, pain in R ankle Time Seen by Provider: 03/06/22 20:30 Source: patient History of Present Illness HPI Narrative: 51-year-old female with a history of hypertension, chronic hypokalemia twisted her right ankle while walking at home. She presents to the ER with -- pain and swelling around the right lateral malleolus. Partial weight-bearing. no other injuries noted MD complaint: ankle injury Onset (ago): hour(s) ( 1 hour ago) Injury: Right: ankle Type of Injury: inversion Place: home Severity: moderate Relieving factors: immobilization Exacerbating factors: nothing Other symptoms: none Treatments prior to arrival: cold therapy Related Data Home Medications Medication Instructions Recorded Confirmed albuterol sulfate 90 mcg INHALATION Q4H PRN 03/06/22 03/06/22 alprazolam 0.25 mg PO Q6H PRN 03/06/22 03/06/22 amlodipine 5 mg PO DAILY 03/06/22 03/06/22 atorvastatin 10 mg PO DAILY 03/06/22 03/06/22 citalopram 40 mg PO DAILY 03/06/22 03/06/22 estradiol 1 mg PO DAILY 03/06/22 03/06/22 fluticasone propionate 2 spray INTRANASAL HS 03/06/22 03/06/22 lisinopril-hydrochlorothiazide 2 tablet PO DAILY 03/06/22 03/06/22 nicotine 1 patch TRANSDERMAL DAILY 03/06/22 03/06/22 potassium chloride 10 meq PO DAILY 03/06/22 03/06/22 tiotropium bromide [Spiriva with 1 cap INHALATION DAILY 03/06/22 03/06/22 HandiHaler] Allergies Allergy/AdvReac Type Severity Reaction Status Date / Time No Known Allergies Allergy Mild Unverified 07/31/15 09:18 Review of Systems Review of Systems: All systems reviewed & are unremarkable except as noted in HPI and below Constitutional: Constitutional: Reports as per HPI and Reports no additional constitutional complaints Eyes: Eyes: Reports as per HPI and Reports no additional eye complaints ENT: Reports system reviewed and no additional complaints, except as documented and Reports as per HPI Cardiovascular: Cardiovascular: Reports as per HPI and Reports no additional cardiovascular complaints Respiratory: Respiratory: Reports as per HPI and Reports no additional respiratory complaints Gastrointestinal: Gastrointestinal: Reports as per HPI and Reports no additional gastrointestinal complaints Genitourinary: Genitourinary: Reports no additional female genitourinary complaints and Reports as per HPI Musculoskeletal: Musculoskeletal: Reports no additional musculoskeletal complaints and Reports as per HPI Comments: pain over the right lateral foot/ ankle Integumentary/Breasts: Skin/Breast: Reports system reviewed and no additional complaints, except as docu and Reports as per HPI Neurologic: Reports system reviewed and no additional complaints, except as documented and Reports as per HPI Psychiatric: Psychiatric: Reports no additional psychiatric complaints and Reports as per HPI Endocrine: Endocrine: Reports no additional endocrine complaints and Reports as per HPI Hematologic/Lymphatic: Hematologic/Lymphatic: Reports no additional hematologic/lymphatic complaints and Reports as per HPI Allergic/Immunologic: Allergic/Immunologic: Reports no additional allergic/immunologic complaints and Reports as per HPI [facility] Family History Family History Sibling Family history of cardiovascular disease Family history of thyroid disease Hypertension Family history of chronic obstructive pulmonary disease Mother Diabetes mellitus Hypertension Father Family history of lung cancer Other Family history of allergic disorder Family history of coronary artery disease Family history of malignant neoplasm Social History Social History Smoking status: Current every day smoker Alcohol intake: current Exam Const: General: no acute distress Orientation/consciousness: patient oriented x3 HENMT:
[2022-03-06 20:34] VITALS: BP 155/93; PULSE 84; RESP 18; TEMP 36.1; O2SAT 97
[2022-03-06] MEDS: KETOROLAC 30 MG/ML VIAL (*BKC) IM (20:55)
--- NOTE | 2022-03-06 21:56 | PC.NURSE ---
jel splint applied to right ankle
[2022-03-06 22:09] VITALS: BP 139/98; PULSE 81; RESP 18; TEMP 36.6; O2SAT 97
== END 2022-03-06 22:11 | disposition home or self-care (01) ==
PROVIDERS: Emergency Provider Internal Medicine Critical Care Medicine; PCP Internal Medicine
DX: S93.411A Sprain of calcaneofibular ligament of right ankle, initial encounter (principal)
CPT/HCPCS: 29515; 73610; 73630; 96372; 99283; J1885; L4350

== ENCOUNTER 2022-03-08 10:47 | Outpatient (CLI) | payer OTHER, SELFPAY ==
--- NOTE | ~2022-03-08 | CT_ITS ---
EXAMINATION: CT ankle RT wo con DATE: 03/08/2022 11:10 INDICATION: Lateral right ankle pain post fall with twisting injury. TECHNIQUE: High resolution computed tomography (CT) of the right ankle was performed without intraven ous contrast. Additional sagittal and coronal reconstructions were performed. Automated exposure cont rol and iterative reconstruction technique were employed. The dose-length product was 410.53 mGy-cm. COMPARISON: None FINDINGS: Bone alignment is normal. Small avulsion fracture along the anterolateral margin of the distal aspect of the anterior process of the calcaneus likely involving the footplate of the bifurcate ligament. J oint spaces appear relatively preserved. Ankle joint effusion is present. There appears to be thicken ing of the anterior talofibular ligament suggestive of with age indeterminate sprain. Mild soft tissu e swelling with subcutaneous edema over the dorsolateral aspect of the midfoot. IMPRESSION: 1. Small flake-like avulsion fracture from the anterior process of the calcaneus likely involving the footplate of the bifurcate ligament. 2. Likely age indeterminate sprain of the anterior talofibular ligament. 3. Right ankle joint effusion. Reviewed, dictated and finalized at location A. IMPRESSION: 1. Small flake-like avulsion fracture from the anterior process of the calcaneu s likely involving the footplate of the bifurcate ligament. 2. Likely age indeterminate sprain of the anterior talofibular ligament. 3. Right ankle joint effusion.
== END 2022-03-08 10:48 | disposition home or self-care (01) ==
LOC: CHSIMG 10:49
PROVIDERS: PCP Internal Medicine; Visit Provider Internal Medicine
DX: M25.571 Pain in right ankle and joints of right foot (principal); S92.025A Nondisplaced fracture of anterior process of left calcaneus, initial encounter for closed fracture
CPT/HCPCS: 73700

== ENCOUNTER 2022-03-25 17:06 | Outpatient (CLI) | payer BC, MEDICAID, SELFPAY ==
[2022-03-25 17:39] LABS: Basophils Absolute Auto 0.07 K/mm3 (0.00-0.10); Basophils Percent Auto 0.7 % (0.0-1.0); Eosinophils Absolute Auto 0.15 K/mm3 (0.02-0.50); Eosinophils Percent Auto 1.5 % (1.0-6.0); Hematocrit 42.6 % (35.0-49.0); Hemoglobin 14.1 g/dL (12.0-15.0); Immature Granulocyte Absolute 0.02 K/mm3 (0.00-0.00); Immature Granulocyte Percent A 0.2 % (0.0-0.0); Lymphocytes Absolute Auto 3.59 K/mm3 (1.10-4.50); Lymphocytes Percent Auto 35.8 % (18.0-42.0); Mean Corpuscular HGB Conc 33.1 g/dL (32.0-36.0); Mean Corpuscular Hemoglobin 31.8 pg (27.0-31.0); Mean Corpuscular Volume 95.9 fL (78.0-102.0); Monocytes Absolute Auto 0.65 K/mm3 (0.10-0.90); Monocytes Percent Auto 6.5 % (2.0-11.0); Neutrophils Absolute Auto 5.6 K/mm3 (1.7-7.2); Neutrophils Percent Auto 55.3 % (50.0-70.0); Platelet Count Result 346 K/mm3 (150-420); Red Blood Count 4.44 M/mm3 (4.20-5.40); Red Cell Distribution Width 13.8 % (11.6-14.4)
[2022-03-25 18:09] LABS: Alanine Aminotransferase 25 U/L (14-59); Albumin Level 3.9 g/dL (3.4-5.0); Alkaline Phosphatase 74 U/L (46-116); Anion Gap 9 mmol/L (8-16); Aspartate Amino Transferase 12 U/L (15-37); Bilirubin,Total 0.2 mg/dL (0.00-1.00); Blood Urea Nitrogen 13 mg/dL (7-18); Calcium 9.8 mg/dL (8.5-10.1); Carbon Dioxide 27 mmol/L (21-32); Chloride 100 mmol/L (98-108); Estimated Glomerular Filt Rate > 60; Glucose 112 mg/dL (70-99); Osmolality Calculated 283 mOsm/kg (285-295); Potassium 3.5 mmol/L (3.5-5.1); Sodium 136 mmol/L (136-145); Total Protein 7.9 g/dL (6.4-8.2)
[2022-03-28 04:19] LABS: Immunoglobulin A 267 mg/dL (47-310); Immunoglobulin G 721 mg/dL (600-1640); Immunoglobulin M 183 mg/dL (50-300)
== END 2022-03-25 17:07 | disposition home or self-care (01) ==
LOC: CHSLAB 17:09
PROVIDERS: PCP Internal Medicine; Visit Provider Internal Medicine Hematology & Oncology
DX: D80.1 Nonfamilial hypogammaglobulinemia (principal)
CPT/HCPCS: 36415; 80053; 82784; 85025

== ENCOUNTER 2022-04-08 16:49 | Outpatient (CLI) | payer BC, SELFPAY ==
--- NOTE | ~2022-04-08 | XR_ITS ---
XR ankle RT min 3V DATE: 04/08/2022 17:06 INDICATION: Right ankle sprain 4 weeks ago TECHNIQUE: 4 views COMPARISON: 03/06/2022 right ankle 03/08/2022 CT right ankle FINDINGS: No fracture or dislocation of the ankle or disruption of the ankle mortise is detected. IMPRESSION: Negative right ankle Reviewed, dictated and finalized at location A. IMPRESSION: Negative right ankle
== END 2022-04-08 16:50 | disposition home or self-care (01) ==
LOC: CHSIMG 16:53
PROVIDERS: PCP Internal Medicine; Visit Provider Internal Medicine
DX: S93.401A Sprain of unspecified ligament of right ankle, initial encounter (principal)
CPT/HCPCS: 73610

== ENCOUNTER 2022-05-04 07:04 | Outpatient (CLI) | payer BC, SELFPAY ==
[2022-05-04 07:20] LABS: Basophils Absolute Auto 0.05 K/mm3 (0.00-0.10); Basophils Percent Auto 0.5 % (0.0-1.0); Eosinophils Absolute Auto 0.07 K/mm3 (0.02-0.50); Eosinophils Percent Auto 0.7 % (1.0-6.0); Hematocrit 44.4 % (35.0-49.0); Hemoglobin 14.9 g/dL (12.0-15.0); Immature Granulocyte Absolute 0.04 K/mm3 (0.00-0.00); Immature Granulocyte Percent A 0.4 % (0.0-0.0); Lymphocytes Absolute Auto 2.52 K/mm3 (1.10-4.50); Lymphocytes Percent Auto 24.6 % (18.0-42.0); Mean Corpuscular HGB Conc 33.6 g/dL (32.0-36.0); Mean Corpuscular Volume 95.3 fL (78.0-102.0); Mean Platelet Volume 9.3 fl (9.2-11.8); Monocytes Percent Auto 4.9 % (2.0-11.0); Neutrophils Absolute Auto 7.1 K/mm3 (1.7-7.2); Neutrophils Percent Auto 68.9 % (50.0-70.0); Platelet Count Result 352 K/mm3 (150-420); Red Blood Count 4.66 M/mm3 (4.20-5.40); Red Cell Distribution Width 13.7 % (11.6-14.4); White Blood Count 10.2 K/mm3 (4.8-10.8)
[2022-05-04 07:57] LABS: Alanine Aminotransferase 22 U/L (14-59); Albumin Level 3.9 g/dL (3.4-5.0); Alkaline Phosphatase 88 U/L (46-116); Anion Gap 10 mmol/L (8-16); Aspartate Amino Transferase 14 U/L (15-37); Bilirubin,Total 0.4 mg/dL (0.00-1.00); Blood Urea Nitrogen 11 mg/dL (7-18); Calcium 9.2 mg/dL (8.5-10.1); Carbon Dioxide 27 mmol/L (21-32); Chloride 104 mmol/L (98-108); Cholesterol 165 mg/dL (0-200); Creatine Kinase 40 U/L (26-192); Estimated Glomerular Filt Rate > 60; Glucose 104 mg/dL (70-99); HDL Direct 53 mg/dL (40-60); LDL Cholesterol Calculated 46 mg/dL (<130); Osmolality Calculated 291 mOsm/kg (285-295); Sodium 141 mmol/L (136-145); Total Protein 7.3 g/dL (6.4-8.2); Triglycerides 330 mg/dL (0-150)
[2022-05-08 19:18] LABS: Red Blood Cell Folate 623 ng/mL RBC (>280)
== END 2022-05-04 07:05 | disposition home or self-care (01) ==
LOC: CHSLAB 07:06
PROVIDERS: PCP Internal Medicine; Visit Provider Internal Medicine
DX: E78.2 Mixed hyperlipidemia (principal); I10 Essential (primary) hypertension; D80.9 Immunodeficiency with predominantly antibody defects, unspecified; R73.01 Impaired fasting glucose
CPT/HCPCS: 36415; 80053; 80061; 82550; 82747; 85025

== ENCOUNTER 2022-11-26 06:57 | Outpatient (CLI) | payer BC, SELFPAY ==
[2022-11-26 07:10] LABS: Add Urine Microscopic? NO; Appearance Urine Clear (Clear); Basophils Absolute Auto 0.08 K/mm3 (0.00-0.10); Basophils Percent Auto 0.6 % (0.0-1.0); Bilirubin Urine Negative (Negative); Blood Urine Negative (Negative); Color Urine Light Yellow (Yellow); Eosinophils Absolute Auto 0.17 K/mm3 (0.02-0.50); Eosinophils Percent Auto 1.3 % (1.0-6.0); Glucose Urine UA Negative (Negative); Hematocrit 41.2 % (35.0-49.0); Hemoglobin 13.7 g/dL (12.0-15.0); Immature Granulocyte Absolute 0.06 K/mm3 (0.00-0.00); Immature Granulocyte Percent A 0.5 % (0.0-0.0); Ketones Urine Negative (Negative); Leukocyte Esterase Ur Negative LEU/UL (Negative); Lymphocytes Absolute Auto 2.63 K/mm3 (1.10-4.50); Lymphocytes Percent Auto 20.3 % (18.0-42.0); Mean Corpuscular HGB Conc 33.3 g/dL (32.0-36.0); Mean Corpuscular Hemoglobin 32.7 pg (27.0-31.0); Mean Corpuscular Volume 98.3 fL (78.0-102.0); Mean Platelet Volume 9.2 fl (9.2-11.8); Monocytes Absolute Auto 0.74 K/mm3 (0.10-0.90); Monocytes Percent Auto 5.7 % (2.0-11.0); Neutrophils Absolute Auto 9.3 K/mm3 (1.7-7.2); Neutrophils Percent Auto 71.6 % (50.0-70.0); Nitrate Urine Negative (Negative); Platelet Count Result 328 K/mm3 (150-420); Protein Urine Negative (Negative); Red Blood Count 4.19 M/mm3 (4.20-5.40); Red Cell Distribution Width 14.3 % (11.6-14.4); Specific Grav Ur 1.025 (1.010-1.020); Urobilinogen Urine 0.2 mg/dL (0.2-1.0)
[2022-11-26 07:34] LABS: Creatinine Urine 83.69 mg/dL (40-278); MALB Creatinine Ratio 15.5 mg/g (0-30); Microalbumin Urine Random < 13.0 mg/L
[2022-11-26 07:36] LABS: Hemoglobin A1C 5.3 % (<5.7)
[2022-11-26 08:00] LABS: Alanine Aminotransferase 20 U/L (14-59); Albumin Level 3.6 g/dL (3.4-5.0); Alkaline Phosphatase 59 U/L (46-116); Anion Gap 8 mmol/L (8-16); Aspartate Amino Transferase 12 U/L (15-37); Bilirubin,Total 0.2 mg/dL (0.00-1.00); Blood Urea Nitrogen 10 mg/dL (7-18); Calcium 9.3 mg/dL (8.5-10.1); Carbon Dioxide 27 mmol/L (21-32); Chloride 104 mmol/L (98-108); Cholesterol 190 mg/dL (0-200); Creatine Kinase 50 U/L (26-192); Estimated Glomerular Filt Rate > 60; Glucose 95 mg/dL (70-99); HDL Direct 60 mg/dL (40-60); LDL Cholesterol Calculated 79 mg/dL (<130); Osmolality Calculated 287 mOsm/kg (285-295); Potassium 4.5 mmol/L (3.5-5.1); Sodium 139 mmol/L (136-145); Total Protein 6.9 g/dL (6.4-8.2); Triglycerides 255 mg/dL (0-150)
[2022-11-29 19:47] LABS: Immunoglobulin G 443 mg/dL (600-1640)
== END 2022-11-26 06:58 | disposition home or self-care (01) ==
LOC: CHSLAB 06:59
PROVIDERS: PCP Internal Medicine; Visit Provider Internal Medicine
DX: I10 Essential (primary) hypertension (principal); D80.9 Immunodeficiency with predominantly antibody defects, unspecified; E78.2 Mixed hyperlipidemia; N39.0 Urinary tract infection, site not specified; R73.01 Impaired fasting glucose
CPT/HCPCS: 36415; 80053; 80061; 81003; 82043; 82550; 82784; 83036; 85025

== ENCOUNTER 2022-12-17 07:13 | Outpatient (CLI) | payer BC, SELFPAY ==
--- NOTE | ~2022-12-17 | CT_ITS ---
CT Scan of the Chest without Contrast: Clinical Indication: Pulmonary nodule Technique: Contiguous sections were acquired throughout the chest without intravenous contrast. Dose reduction technique was used on this scan by utilizing automated exposure control and iterative recon struction technique. The dose-length product (DLP) was 92.38 mGy-cm. COMPARISON: 07/30/2021 and 09/23/2018 Findings: There is no evidence of any significant mediastinal, hilar or axillary lymphadenopathy. The mediastin al soft tissues appear normal. There is no evidence of pleural or pericardial effusion. Stable 8 mm nodule in the right middle lobe. Stable calcified right upper lobe granuloma. Stable smal l calcified left upper lobe granuloma. Stable scarring in the lingula. Images through the upper abdomen reveal no abnormalities. Impression: Stable pulmonary nodules, as detailed above. Stability since 2017 is compatible with benignity. Reviewed, dictated and finalized at [facility]. 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 Stability since 2018 is compatible with benignity.
== END 2022-12-17 07:14 | disposition home or self-care (01) ==
LOC: CHSIMG 07:14
PROVIDERS: PCP Internal Medicine; Visit Provider Internal Medicine
DX: R91.8 Other nonspecific abnormal finding of lung field (principal)
CPT/HCPCS: 71250

== ENCOUNTER 2022-12-19 07:05 | Outpatient (CLI) | payer BC, SELFPAY ==
--- NOTE | ~2022-12-19 | MM_ITS ---
EXAMINATION: MM screening leidy BI w cristel HISTORY: Screening mammogram TECHNIQUE: Craniocaudal and mediolateral oblique 3-D tomosynthesis images were obtained and synthetic 2-D images were generated. CAD analysis was submitted and interpreted. COMPARISON: December 13, 2021, February 11, 2012 bilateral screening mammogram examinations BREAST PARENCHYMAL COMPOSITION: There are scattered areas of fibroglandular density. FINDINGS: There is no evidence of suspicious mass, calcification, or architectural distortion to sugg est malignancy in either breast. There has been no suspicious interval change. IMPRESSION: 1. No mammographic evidence of malignancy. 2. Recommend routine screening mammography in one year. BI-RADS Category 1: Negative. Reviewed, dictated and finalized at location A. 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
== END 2022-12-19 07:06 | disposition home or self-care (01) ==
LOC: CHSIMG 07:07
PROVIDERS: PCP Internal Medicine; Visit Provider Obstetrics & Gynecology
DX: Z12.31 Encounter for screening mammogram for malignant neoplasm of breast (principal)
CPT/HCPCS: 77063; 77067

== ENCOUNTER 2023-03-07 14:08 | Outpatient (CLI) | payer BC, SELFPAY ==
--- NOTE | ~2023-03-07 | CT_ITS ---
EXAMINATION: CT abdomen pelvis w con DATE: 03/07/2023 14:47 INDICATION: Umbilical pain and lump. Vomiting. TECHNIQUE: Computed tomography (CT) of the abdomen and pelvis was performed with 100 mL Omnipaque-350 intravenous contrast. Automated exposure control and iterative reconstruction technique were employe d. The dose-length product was 566.09 mGy-cm. COMPARISON: 02/19/2019 FINDINGS: Mild atelectasis at the lingula and right middle lobe. Heart size is normal. Small amount of atherosc lerotic coronary artery calcification. No pericardial or pleural effusion. Small sliding-type hiatal hernia. Liver, gallbladder, spleen, pancreas, bilateral adrenal glands and kidneys are normal. Small fat-containing umbilical hernia. Slight more cephalad there is an additional small supraumbilical allen tral hernia also containing fat with associated inflammatory stranding. Herniated fat measures 2.5 x 2.2 x 1.3 cm in maximal diameter and extensive in approximate 5 x 7 mm orifice. There are few scatter ed colonic diverticula without adjacent inflammatory stranding. Small bowel and appendix are normal. Bladder is normal. The uterus is not identified and has likely been surgically resected. No free intr aperitoneal gas or fluid. No pathologically enlarged abdominal or pelvic lymphadenopathy. Mild lumbar spondylosis. Mild bilateral hip osteoarthritis. IMPRESSION: 1. Small fat-containing umbilical and supraumbilical ventral hernias, the latter with associated infl ammatory stranding suggesting potential incarceration and ischemia of the herniated omental fat. Reviewed, dictated and finalized at location A. IMPRESSION: 1. Small fat-containing umbilical and supraumbilical ventral hernias, the latte r with associated inflammatory stranding suggesting potential incarceration and ischemia of the herniated omental fat.
[2023-03-07 14:22] LABS: Basophils Absolute Auto 0.07 K/mm3 (0.00-0.10); Basophils Percent Auto 0.7 % (0.0-1.0); Eosinophils Absolute Auto 0.09 K/mm3 (0.02-0.50); Eosinophils Percent Auto 0.9 % (1.0-6.0); Hematocrit 39.7 % (35.0-49.0); Hemoglobin 13.4 g/dL (12.0-15.0); Immature Granulocyte Absolute 0.06 K/mm3 (0.00-0.00); Immature Granulocyte Percent A 0.6 % (0.0-0.0); Lymphocytes Absolute Auto 2.79 K/mm3 (1.10-4.50); Lymphocytes Percent Auto 27.3 % (18.0-42.0); Mean Corpuscular HGB Conc 33.8 g/dL (32.0-36.0); Mean Corpuscular Hemoglobin 33.2 pg (27.0-31.0); Mean Corpuscular Volume 98.3 fL (78.0-102.0); Mean Platelet Volume 9.3 fl (9.2-11.8); Monocytes Absolute Auto 0.54 K/mm3 (0.10-0.90); Monocytes Percent Auto 5.3 % (2.0-11.0); Neutrophils Absolute Auto 6.7 K/mm3 (1.7-7.2); Neutrophils Percent Auto 65.2 % (50.0-70.0); Platelet Count Result 292 K/mm3 (150-420); Red Blood Count 4.04 M/mm3 (4.20-5.40); Red Cell Distribution Width 13.8 % (11.6-14.4); White Blood Count 10.2 K/mm3 (4.8-10.8)
[2023-03-07 14:37] LABS: Alanine Aminotransferase 25 U/L (14-59); Albumin Level 3.7 g/dL (3.4-5.0); Alkaline Phosphatase 65 U/L (46-116); Amylase 14 U/L (25-115); Anion Gap 13 mmol/L (8-16); Aspartate Amino Transferase 18 U/L (15-37); Bilirubin,Total 0.3 mg/dL (0.00-1.00); Blood Urea Nitrogen 9 mg/dL (7-18); Calcium 8.4 mg/dL (8.5-10.1); Carbon Dioxide 25 mmol/L (21-32); Chloride 101 mmol/L (98-108); Estimated Glomerular Filt Rate > 60; Glucose 98 mg/dL (70-99); Lipase 19 U/L (16-77); Osmolality Calculated 286 mOsm/kg (285-295); Potassium 3.2 mmol/L (3.5-5.1); Sodium 139 mmol/L (136-145); Total Protein 7.2 g/dL (6.4-8.2)
[2023-03-07 14:42] LABS: Hemoglobin A1C 5.2 % (<5.7)
[2023-03-12 21:14] LABS: Vitamin D 25 Hydroxy 36 ng/mL (30-100)
== END 2023-03-07 14:09 | disposition home or self-care (01) ==
LOC: CHSLAB 14:10
PROVIDERS: PCP Internal Medicine; Visit Provider Nurse Practitioner Family
DX: R10.9 Unspecified abdominal pain (principal); R73.9 Hyperglycemia, unspecified; K42.9 Umbilical hernia without obstruction or gangrene; K43.9 Ventral hernia without obstruction or gangrene; E83.51 Hypocalcemia
CPT/HCPCS: 36415; 74177; 80053; 82150; 82306; 83036; 83690; 85025; Q9967

== ENCOUNTER 2023-03-07 17:43 | Emergency (ER) | payer BC, SELFPAY ==
[2023-03-07 17:44] VITALS: BP 170/109; PULSE 82; RESP 16; TEMP 36.6; O2SAT 100
--- NOTE | 2023-03-07 18:47 | ED.ABDPAIN ---
HPI - Abdominal Pain General Chief Complaint: Abdominal Pain Stated Complaint: abnormal abd CT Time Seen by Provider: 03/07/23 17:48 Source: patient and old records reviewed Mode of arrival: ambulatory Limitations: no limitations History of Present Illness HPI narrative: Patient is a 52-year-old female who presents ED with report of abnormal CT scan. Patient reports she has noticed a bulge just above her bellybutton in the past, however the bulge became larger, more firm and tender on Friday. She was seen at [facility] today and had an outpatient CT performed today which showed a umbilical and supraumbilical hernia, the supraumbilical hernia with findings concerning for incarceration and ischemia of the omental fat. Patient was then referred here for further evaluation. Patient denies any issues with bowels, diarrhea, constipation, fevers, current nausea. Related Data Home Medications Medication Instructions Recorded Confirmed albuterol sulfate 90 mcg/actuation 90 mcg inhalation Q4H PRN 03/06/22 03/06/22 aerosol inhaler Shortness Of Breath alprazolam 0.25 mg tablet 0.25 mg PO Q6H PRN Anxiety 03/06/22 03/06/22 amlodipine 5 mg tablet 5 mg PO DAILY 03/06/22 03/06/22 atorvastatin 10 mg tablet 10 mg PO DAILY 03/06/22 03/06/22 citalopram 40 mg tablet 40 mg PO DAILY 03/06/22 03/06/22 estradiol 1 mg tablet 1 mg PO DAILY 03/06/22 03/06/22 fluticasone propionate 50 2 spray intranasal HS 03/06/22 03/06/22 mcg/actuation nasal spray,suspension lisinopril 20 2 tablet PO DAILY 03/06/22 03/06/22 mg-hydrochlorothiazide 12.5 mg tablet nicotine 14 mg/24 hr daily 1 patch transdermal DAILY 03/06/22 03/06/22 transdermal patch potassium chloride 10 mEq 10 meq PO DAILY 03/06/22 03/06/22 tablet,extended release tiotropium bromide 18 mcg capsule 1 cap inhalation DAILY 03/06/22 03/06/22 with inhalation device (Spiriva with HandiHaler) Allergies Allergy/AdvReac Type Severity Reaction Status Date / Time No Known Allergies Allergy Mild Verified 03/07/23 17:58 Review of Systems Review of Systems: CONSTITUTIONAL: Denies fever, chills, or sweats. CARDIOVASCULAR: Denies chest pain. RESPIRATORY: Denies dyspnea. GASTROINTESTINAL: See HPI. GENITOURINARY: Denies dysuria or hematuria. SKIN: Denies rash or itching. MUSCULOSKELETAL: Denies back pain, joint pain, or myalgia. All systems reviewed & are unremarkable except as noted in HPI and below PMFSH Past Medical History Medical History Asthma HLD (hyperlipidemia) HTN (hypertension) Surgical History Surgical History History of hysterectomy Family History Family History Sibling Family history of cardiovascular disease Family history of thyroid disease Hypertension Family history of chronic obstructive pulmonary disease Mother Diabetes mellitus Hypertension Father Family history of lung cancer Other Family history of allergic disorder Family history of coronary artery disease Family history of malignant neoplasm Social History Social History Smoking status: Current every day smoker Alcohol intake: current Exam Narrative: GENERAL: Well appearing, well-nourished, non-toxic, in no acute distress. HEAD: Normocephalic, atraumatic. NECK: Supple. No adenopathy, no masses. RESPIRATORY: Airway patent, respirations nonlabored. Clear to auscultation bilaterally, no rales, rhonchi, wheezing. CARDIOVASCULAR: Regular rate and rhythm without murmurs, rubs, or gallops. Peripheral pulses 2+ and equal bilaterally. ABDOMINAL: Soft, approx 3x3 cm supraumbilical hernia bulge, somewhat firm with focal TTP over bulge, unable to reduce. Mild overlying skin redness. No significant warmth. Nondistended. No tender
--- NOTE | 2023-03-07 19:15 | PC.NURSE ---
This RN assumed care for patient.
[2023-03-07 19:25] LABS: Appearance Urine Clear (Clear); Bilirubin Urine Negative (Negative); Blood Urine Negative (Negative); Color Urine Yellow (Yellow); Glucose Urine UA Negative (Negative); Ketones Urine Negative (Negative); Leukocyte Esterase Ur Negative LEU/UL (Negative); Nitrate Urine Negative (Negative); Protein Urine Negative (Negative)
[2023-03-07 19:28] LABS: Specific Grav Ur 1.041 (1.001-1.035)
[2023-03-07 19:28] LABS: Lactic Acid Reflex 1.2 mmol/L (0.7-2.0)
[2023-03-07 19:29] LABS: Add Urine Microscopic? NO
[2023-03-07] MEDS: MORPHINE SULFATE (*CRX) 4 MG/ML INJ IV PUSH (19:29)
[2023-03-07] MEDS: ONDANSETRON INJ 4 MG/2 ML VIAL IV PUSH (19:30)
[2023-03-07] MEDS: SODIUM CHLORIDE 0.9% IV 1,000 ML 999 ML IV CONT (19:39)
[2023-03-07] MEDS: HYDROcodone/acetaminophen (*CRX) 5-325 MG TABLET 1 TAB PO (21:07)
== END 2023-03-07 21:18 | disposition home or self-care (01) ==
PROVIDERS: Emergency Provider Physician Assistant; PCP Internal Medicine
DX: K43.6 Other and unspecified ventral hernia with obstruction, without gangrene (principal); K42.9 Umbilical hernia without obstruction or gangrene; J45.909 Unspecified asthma, uncomplicated; E78.5 Hyperlipidemia, unspecified; I10 Essential (primary) hypertension; F17.200 Nicotine dependence, unspecified, uncomplicated
CPT/HCPCS: 36415; 81003; 83605; 96361; 96374; 96375; 99284; A9270; J2270; J2405; J7030

== ENCOUNTER 2023-04-16 11:31 | Outpatient (CLI) | payer BC, SELFPAY ==
--- NOTE | 2023-04-16 11:37 | ECG_ITS ---
Measurements Intervals [place] Rate: 78 P: 48 HI: 160 QRS: -45 QRSD: 100 T: 1 QT: 405 QTc: 463 Interpretive Statements SINUS RHYTHM MARKED LEFT AXIS DEVIATION [QRS AXIS < -30] LOW QRS VOLTAGE IN PRECORDIAL LEADS [QRS DEFLECTION < 1.0 mV IN CHEST LEADS] PATTERN CONSISTENT WITH PULMONARY DISEASE INCOMPLETE RIGHT BUNDLE BRANCH BLOCK [90+ ms QRS DURATION, TERMINAL R IN V1/V2, 40+ ms S IN I/aVL/V4/V5/V6] ABNORMAL ECG Electronically Signed On 04-16-2023 12:02:22 CDT by Jamison Mock M.D.
== END 2023-04-16 11:32 | disposition home or self-care (01) ==
LOC: ANHSURGERY 11:35
PROVIDERS: PCP Internal Medicine; Visit Provider Surgery
DX: K43.2 Incisional hernia without obstruction or gangrene (principal); I10 Essential (primary) hypertension; Z01.818 Encounter for other preprocedural examination; I45.10 Unspecified right bundle-branch block
CPT/HCPCS: 36415; 86850; 86900; 86901; 93005

== ENCOUNTER 2023-04-17 01:18 | Day surgery (SDC) | payer BC, SELFPAY ==
[2023-04-10 12:38] VITALS: BMI 29.2
--- NOTE | 2023-04-10 12:43 | PC.NURSE ---
Report to the Outpatient Waiting Room, entrance under the green pavilion located off [facility], at time 10:00 on date 04/17/23. Planned Procedure Time: 12:00. Time changes happen often and if your time is changed the preop area will call you the afternoon before. - You and your visitor will be asked to self-screen and do not enter if you have any COVID symptoms. - A mask is optional within the hospital at this time. Patients may have clear liquids (water, carbonated beverages, clear teas, apple juice) until 3 hours prior to surgery (9:00) with a maximum of 20 ounces. - No food from midnight until time of surgery Take the following medications with a SIP of water the morning of surgery: INHALERS IF NEEDED, AMLODIPINE, CITALOPRAM, PAIN PILL IF NEEDED DO NOT STOP ANY OF YOUR OTHER PRESCRIPTION MEDICATIONS PRIOR TO SURGERY ?EXCEPT THE FOLLOWING Medications to discontinue per physician: VITAMINS/SUPPLEMENTS Date to take last dose: 04/13/23 Please no make-up, nail puerto rican, hairspray, perfume, deodorant, or body powder the day of surgery. No jewelry (including any body piercings) or valuables the day of surgery, leave them at home. Please take a shower or bath the night before, or the morning of, surgery with an antibacterial soap (HIBICLENS). Wear comfortable, loose fitting clothing. - Jewelry must be removed prior to entering the operating room. Rings and piercings that are not removed may be cut off. - The hospital will not accept responsibility for valuables. - Please leave all valuables, including medications, at home the day of surgery. If you are going home after surgery, a licensed driver recruiter must drive you home. - NO public transportation without another adult if you receive anesthesia. - We recommend that an adult stay with you for 24 hours following discharge. - We also recommend that you do not drive, make important decision, drink alcoholic beverages, or take any drugs that were not prescribed by your health care provider for at least 24 hours after your discharge time. Follow any additional instructions given to you from your surgeon. If you or anyone in your household have experienced Covid symptoms in the past week, please notify your surgeon or the nurse liaison at the phone number below for possible testing. Telephone instructions given to PT - VIVI CASTREJON and asked if any additional questions and then verbalized understanding. Patient advised to call surgeon office or pre surgery nurse liaison [phone] if any additional questions.
[2023-04-17] VITALS (14 sets, daily range): BP systolic 106–155; BP diastolic 69–96; PULSE 78–91; RESP 16–20; TEMP 36.6–37.1; O2SAT 92–98; BMI 29.0
[2023-04-17] MEDS: LACTATED RINGERS 1,000 ML 30 ML IV CONT ×2 (09:07→12:14)
[2023-04-17] MEDS: KETOROLAC 15 MG/ML VIAL (*BKC) IV PUSH (09:08)
[2023-04-17] MEDS: ACETAMINOPHEN 500 MG TABLET 1000 MG PO (09:08)
--- NOTE | 2023-04-17 09:42 | WPDANESEPP ---
Anes - Eval Pre Procedure Procedure: Operation Date: 04/17/23 10:30 Proposed Procedures p Robotic Assisted Laparoscopic Incisional and Umbilical Hernia Repair with Mesh - Svetlana Harper MD Date/Time: 04/17/23 09:42 Surgeon: Leroy Pre Op Diagnosis: Incisional and Umbilical Hernia Patient Data Age: 52 Gender: F Height: 1.57 m Weight: 72.6 kg Allergies Allergy/AdvReac Type Severity Reaction Status Date / Time No Known Allergies Allergy Mild Verified 04/17/23 08:44 Home Medications Medication Instructions Recorded Confirmed Type albuterol sulfate 90 mcg/actuation 90 mcg inhalation Q4H PRN 03/06/22 04/10/23 History aerosol inhaler Shortness Of Breath alprazolam 0.25 mg tablet 0.25 mg PO Q6H PRN Anxiety 03/06/22 04/10/23 History amlodipine 5 mg tablet 5 mg PO DAILY 03/06/22 04/10/23 History atorvastatin 10 mg tablet 10 mg PO DAILY 03/06/22 04/10/23 History citalopram 40 mg tablet 40 mg PO DAILY 03/06/22 04/10/23 History estradiol 1 mg tablet 1 mg PO DAILY 03/06/22 04/10/23 History fluticasone propionate 50 2 spray intranasal HS 03/06/22 04/10/23 History mcg/actuation nasal spray,suspension lisinopril 20 2 tablet PO DAILY 03/06/22 04/10/23 History mg-hydrochlorothiazide 12.5 mg tablet potassium chloride 10 mEq 10 meq PO DAILY 03/06/22 04/10/23 History tablet,extended release tiotropium bromide 18 mcg capsule 1 cap inhalation DAILY PRN 03/06/22 04/10/23 History with inhalation device (Spiriva Shortness Of Breath Or Wheezing with HandiHaler) hydrocodone 5 mg-acetaminophen 325 1 tablet PO Q6H PRN pain #15 tabs 03/07/23 04/10/23 Rx mg tablet ondansetron 4 mg disintegrating 4 mg PO Q8H PRN nausea and 03/07/23 04/10/23 Rx tablet vomiting #10 tabs pantoprazole 40 mg tablet,delayed 40 mg PO QHS 03/21/23 04/10/23 History release tramadol 50 mg tablet 50 mg PO Q6H PRN pain #30 tabs 03/21/23 04/10/23 Rx ECG: ? Measurements Intervals? [place]? Rate: ? 78 ? P:? 48 AL: ? 160? QRS:? -45 QRSD: ? 100? T:? 1 QT: ? 405? QTc:? 463? Interpretive Statements SINUS RHYTHM MARKED LEFT AXIS DEVIATION [QRS AXIS < -30] LOW QRS VOLTAGE IN PRECORDIAL LEADS [QRS DEFLECTION < 1.0 mV IN CHEST LEADS] PATTERN CONSISTENT WITH PULMONARY DISEASE INCOMPLETE RIGHT BUNDLE BRANCH BLOCK [90+ ms QRS DURATION, TERMINAL R IN V1/V2, 40+ ms S IN I/aVL/V4/V5/V6] ABNORMAL ECG Electronically Signed On 04-16-2023 12:02:22 CDT by Jamison Mock M.D. Patient hx anesthesia problems: none Family hx anesthesia problems: none Results Review: All pre-operative results and documents have been reviewed as part of the pre-operative evaluation. [facility] Past Medical History Medical History Asthma HLD (hyperlipidemia) HTN (hypertension) Tobacco use Surgical History Surgical History Endometriosis determined by laparoscopy History of hysterectomy Family History Family History Sibling Family history of cardiovascular disease Family history of thyroid disease Hypertension Family history of chronic obstructive pulmonary disease Mother Diabetes mellitus Hypertension Father Family history of lung cancer Other Family history of allergic disorder Family history of coronary artery disease Family history of malignant neoplasm Social History Social History Smoking packs per day: 0.5 Smoking cigarettes per day: 10.0 Years smoked: 36 Smoking pack-years: 18.00 Smoking status: Current every day smoker Tobacco type: cigarettes Alcohol intake: current Drinks per week: 6 S
--- NOTE | 2023-04-17 10:17 | WPDHPUPDATE1 ---
History and Physical Update Update Date/Time: 04/17/23 10:17 History and Physical has been reviewed, including an updated exam of the patient. There are NO changes in the patient's condition. Risks, benefits, and alternatives have been discussed and questions answered. Patient agrees to proceed with procedure.
[2023-04-17] MEDS: ceFAZolin 2 GM/D5W 50 ML 2 GM/50 ML BAG IVPB (10:23)
--- NOTE | 2023-04-17 10:57 | WPDANESEPPF ---
Anes - Initial Pre Proc Eval Procedure: Operation Date: 04/17/23 10:30 Proposed Procedures p Robotic Assisted Laparoscopic Incisional and Umbilical Hernia Repair with Mesh - Svetlana Harper MD Date/Time: 04/17/23 10:57 Surgeon: Svetlana Harper MD Pre Op Diagnosis: Incisional and Umbilical Hernia Patient Data Age: 52 Gender: F Height: 1.57 m Weight: 72 kg Last Vital Signs Temp 98.7 F 04/17/23 08:40 Pulse 78 04/17/23 08:40 Resp 18 04/17/23 08:40 BP 155/94 H 04/17/23 08:40 Pulse Ox 97 04/17/23 08:40 O2 Del Method Room Air 04/17/23 08:40 Allergies Allergy/AdvReac Type Severity Reaction Status Date / Time No Known Allergies Allergy Mild Verified 04/17/23 08:44 Home Medications Medication Instructions Recorded Confirmed Type albuterol sulfate 90 mcg/actuation 90 mcg inhalation Q4H PRN 03/06/22 04/10/23 History aerosol inhaler Shortness Of Breath alprazolam 0.25 mg tablet 0.25 mg PO Q6H PRN Anxiety 03/06/22 04/10/23 History amlodipine 5 mg tablet 5 mg PO DAILY 03/06/22 04/10/23 History atorvastatin 10 mg tablet 10 mg PO DAILY 03/06/22 04/10/23 History citalopram 40 mg tablet 40 mg PO DAILY 03/06/22 04/10/23 History estradiol 1 mg tablet 1 mg PO DAILY 03/06/22 04/10/23 History fluticasone propionate 50 2 spray intranasal HS 03/06/22 04/10/23 History mcg/actuation nasal spray,suspension lisinopril 20 2 tablet PO DAILY 03/06/22 04/10/23 History mg-hydrochlorothiazide 12.5 mg tablet potassium chloride 10 mEq 10 meq PO DAILY 03/06/22 04/17/23 History tablet,extended release tiotropium bromide 18 mcg capsule 1 cap inhalation DAILY PRN 03/06/22 04/10/23 History with inhalation device (Spiriva Shortness Of Breath Or Wheezing with HandiHaler) hydrocodone 5 mg-acetaminophen 325 1 tablet PO Q6H PRN pain #15 tabs 03/07/23 04/10/23 Rx mg tablet ondansetron 4 mg disintegrating 4 mg PO Q8H PRN nausea and 03/07/23 04/10/23 Rx tablet vomiting #10 tabs pantoprazole 40 mg tablet,delayed 40 mg PO QHS 03/21/23 04/10/23 History release tramadol 50 mg tablet 50 mg PO Q6H PRN pain #30 tabs 03/21/23 04/10/23 Rx Patient hx anesthesia problems: none Family hx anesthesia problems: none Results Review: All pre-operative results and documents have been reviewed as part of the pre-operative evaluation. [facility] Past Medical History Medical History Asthma HLD (hyperlipidemia) HTN (hypertension) Tobacco use Surgical History Surgical History Endometriosis determined by laparoscopy History of hysterectomy Family History Family History Sibling Family history of cardiovascular disease Family history of thyroid disease Hypertension Family history of chronic obstructive pulmonary disease Mother Diabetes mellitus Hypertension Father Family history of lung cancer Other Family history of allergic disorder Family history of coronary artery disease Family history of malignant neoplasm Social History Social History Smoking packs per day: 0.5 Smoking cigarettes per day: 10.0 Years smoked: 36 Smoking pack-years: 18.00 Smoking status: Current every day smoker Tobacco type: cigarettes Alcohol intake: current Drinks per week: 6 Substance use: never Substance use type: does not use Living arrangements: with friend(s) Spiritual care concerns: No Anes - Eval Final PreProcedure Day of Procedure 04/17/23 10:57 Patient weight: obese Heart: regular rate and rhythm Lungs: clear to auscultation Airway: Mallampati scale class II Neurological: alert and oriented Last oral intake: >/= 8 hours ASA classification: III Emergent: no Anesthetic plan: proceed Anesthesia type and monitoring: general ETT and standard monitoring Results Review: All pre-operative res
--- NOTE | 2023-04-17 12:22 | P.OP_ITS ---
Procedure Note - Detailed Date of Procedure 04/17/23 Pre-op Diagnosis Incisional and Umbilical Hernia Post-op Diagnosis Same Procedure Performed robotic assisted incarcerated supraumbilical incisional hernia and umbilical hernia repair with mesh, total defect measuring approximately 5.5 cm Surgeon Svetlana Harper MD Anesthesia General Indications 53 y/o F c incarcerated supraumbilical incisional hernia and umbilical Description of Procedure The patient was taken the operating room placed in the supine position. After adequate induction of general anesthesia, the patient was prepped and draped in normal sterile fashion. A time-out was then done to verify the patient's identity as well as the procedure being performed. I began by making a 8 mm incision in the left upper quadrant. Through this, a Veress needle was placed into the peritoneal cavity and CO2 gas was insufflated. After adequate pneumoperitoneum was achieved, a 8 mm trocar was placed through this incision. I then placed the laparoscope through this trocar site and under direct visual ization I placed a 8 mm port in the left mid abdomen as well as an additional 8 mm port in the left lower abdomen. The robot was then docked to the 3 port sites. I then went to the robotic console. I began by identifying the hernia. A moderate-sized incarcerated hernia was noted in the supraumbilical region. Using graspers, I was able to reduce this hernia. The hernia was noted to contain a large amount of preperitoneal fat and omentum. Once reduced, I also reduced and dissected out the hernia sac. There was noted to be a smaller umbilical hernia approximately 2 cm inferior to the larger incisional defect. This was also dissected and cleared. After dissection of both hernias the total defect measured 5.5 cm. I then closed the defects with 0 strata fix suture. I then placed a 15 x 10 cm Ventralight mesh into the abdominal cavity. The positional stitch was placed in the middle of the mesh and brought up centering the mesh over the defects. Once this was done, I used 2 0 V lock suture x 2 to circumferentially suture the mesh to the abdominal. Once the mesh was completely sutured in, I was happy with our tension-free repair. The mesh was noted to have good overlap of the defect. The echo positioning device was removed at this point. The robot was undocked and all ports were removed. All port sites were then closed with 4 O Monocryl subcuticular suture. The patient tolerated the procedure well, is extubated in the operating room postoperative, OB transferred to the recovery room in stable condition. Implants 15x10 cm Ventralight mesh Estimated Blood Loss 10 Drains No Packing No Pathology None sent Complications No immediate complications Condition Stable Disposition PACU [facility] Billing Surgery - Charge Forward: Surgery Billing
[2023-04-17] MEDS: fentaNYL CITRATE INJ (*CRX) 100 MCG/2 ML VIAL 25 MCG IV PUSH ×4 (12:36→15:28)
[2023-04-17] MEDS: oxyCODONE HCL (*CRX) 5 MG TAB IR PO (14:20)
== END 2023-04-17 15:56 | disposition home or self-care (01) ==
PROVIDERS: PCP Internal Medicine; Visit Provider Surgery
PROC: (CPT 49594; principal; 2023-04-17 10:30)
DX: K43.0 Incisional hernia with obstruction, without gangrene (principal); K42.9 Umbilical hernia without obstruction or gangrene; I10 Essential (primary) hypertension; E78.5 Hyperlipidemia, unspecified; J45.909 Unspecified asthma, uncomplicated; F17.210 Nicotine dependence, cigarettes, uncomplicated; Z79.51 Long term (current) use of inhaled steroids
CPT/HCPCS: 49594; S2900; A9270; C1781; J0690; J1100; J1885; J2250; J2405; J2704; J2710; J3010; J7030; J7120

== ENCOUNTER 2023-08-27 07:41 | Outpatient (CLI) | payer BC, SELFPAY ==
[2023-08-27 07:59] LABS: Basophils Absolute Auto 0.06 K/mm3 (0.00-0.10); Basophils Percent Auto 0.6 % (0.0-1.0); Eosinophils Absolute Auto 0.13 K/mm3 (0.02-0.50); Eosinophils Percent Auto 1.4 % (1.0-6.0); Hematocrit 44.4 % (35.0-49.0); Hemoglobin 14.6 g/dL (12.0-15.0); Immature Granulocyte Absolute 0.04 K/mm3 (0.00-0.00); Immature Granulocyte Percent A 0.4 % (0.0-0.0); Lymphocytes Absolute Auto 1.93 K/mm3 (1.10-4.50); Lymphocytes Percent Auto 20.8 % (18.0-42.0); Mean Corpuscular HGB Conc 32.9 g/dL (32.0-36.0); Mean Corpuscular Hemoglobin 31.7 pg (27.0-31.0); Mean Corpuscular Volume 96.5 fL (78.0-102.0); Mean Platelet Volume 9.2 fl (9.2-11.8); Monocytes Absolute Auto 0.57 K/mm3 (0.10-0.90); Monocytes Percent Auto 6.1 % (2.0-11.0); Neutrophils Absolute Auto 6.6 K/mm3 (1.7-7.2); Neutrophils Percent Auto 70.7 % (50.0-70.0); Platelet Count Result 321 K/mm3 (150-420); Red Cell Distribution Width 14.1 % (11.6-14.4); White Blood Count 9.3 K/mm3 (4.8-10.8)
[2023-08-27 08:00] LABS: Appearance Urine Clear (Clear); Bilirubin Urine Negative (Negative); Blood Urine Negative (Negative); Color Urine Yellow (Yellow); Glucose Urine UA Negative (Negative); Ketones Urine Negative (Negative); Leukocyte Esterase Ur Negative LEU/UL (Negative); Nitrate Urine Negative (Negative); Protein Urine Negative (Negative); Specific Grav Ur 1.025 (1.010-1.020); Urobilinogen Urine 0.2 mg/dL (0.2-1.0)
[2023-08-27 08:08] LABS: Add Urine Microscopic? NO
[2023-08-27 08:20] LABS: Hemoglobin A1C 5.5 % (<5.7)
[2023-08-27 08:39] LABS: Alanine Aminotransferase 24 U/L (14-59); Albumin Level 3.6 g/dL (3.4-5.0); Alkaline Phosphatase 68 U/L (46-116); Anion Gap 13 mmol/L (8-16); Aspartate Amino Transferase 14 U/L (15-37); Bilirubin,Total 0.3 mg/dL (0.00-1.00); Blood Urea Nitrogen 8 mg/dL (7-18); Calcium 9.6 mg/dL (8.5-10.1); Carbon Dioxide 25 mmol/L (21-32); Chloride 100 mmol/L (98-108); Cholesterol 227 mg/dL (0-200); Estimated Glomerular Filt Rate > 60; Free T3 2.57 pg/mL (2.18-3.98); Free T4 Free Thyroxine 0.86 ng/dL (0.76-1.46); Glucose 118 mg/dL (70-99); HDL Direct 58 mg/dL (40-60); LDL Cholesterol Calculated 82 mg/dL (<130); Osmolality Calculated 285 mOsm/kg (285-295); Potassium 3.8 mmol/L (3.5-5.1); Sodium 138 mmol/L (136-145); Thyroid Stimulating Hormone 2.71 uIU/mL (0.36-3.74); Triglycerides 437 mg/dL (0-150)
[2023-08-27 09:00] LABS: LDL Cholesterol Direct 107 mg/dL (0-130)
[2023-08-30 09:29] LABS: Immunoglobulin A 272 mg/dL (47-310); Immunoglobulin G 482 mg/dL (600-1640)
[2023-08-31 17:52] LABS: Vitamin D 25 Hydroxy 19 ng/mL (30-100)
== END 2023-08-27 07:42 | disposition home or self-care (01) ==
PROVIDERS: PCP Internal Medicine; Visit Provider Internal Medicine
DX: N39.0 Urinary tract infection, site not specified (principal); I10 Essential (primary) hypertension; E78.2 Mixed hyperlipidemia; R73.01 Impaired fasting glucose; R53.83 Other fatigue; E55.9 Vitamin D deficiency, unspecified; D80.9 Immunodeficiency with predominantly antibody defects, unspecified
CPT/HCPCS: 36415; 80053; 80061; 81003; 82306; 82784; 83036; 83721; 84439; 84443; 84481; 85025

== ENCOUNTER 2023-12-30 12:14 | Outpatient (CLI) | payer BC, SELFPAY ==
--- NOTE | ~2023-12-30 | MM_ITS ---
EXAMINATION: MM screening leidy BI w cristel HISTORY: Screening mammogram TECHNIQUE: Craniocaudal and mediolateral oblique 3-D tomosynthesis images were obtained and synthetic 2-D images were generated. CAD analysis was submitted and interpreted. COMPARISON: 12/19/2022, 12/13/2021 bilateral screening mammogram examinations BREAST PARENCHYMAL COMPOSITION: There are scattered areas of fibroglandular density. FINDINGS: There is no evidence of suspicious mass, calcification, or architectural distortion to sugg est malignancy in either breast. There has been no suspicious interval change. IMPRESSION: 1. No mammographic evidence of malignancy. 2. Recommend routine screening mammography in one year. BI-RADS Category 1: Negative Reviewed, dictated and finalized at location A.
--- NOTE | ~2023-12-30 | CT_ITS ---
CT Scan of the Chest without Contrast: Clinical Indication: Pulmonary nodule Technique: Contiguous sections were acquired throughout the chest without intravenous contrast. Dose reduction technique was used on this scan by utilizing automated exposure control and iterative recon struction technique. The dose-length product (DLP) was 79.90 mGy-cm. COMPARISON: 12/09/2022 Findings: There is no evidence of any significant mediastinal, hilar or axillary lymphadenopathy. The mediastin al soft tissues appear normal. There is no evidence of pleural or pericardial effusion. Calcified right upper lobe granuloma present. Stable 6 mm noncalcified right middle lobe pulmonary no dule. Stable focal discoid scarring at the lingula. Images through the upper abdomen reveal no abnormalities. Impression: Stable pulmonary nodules, as detailed above. Reviewed, dictated and finalized at [facility]. Impression: Stable pulmonary nodules, as detailed above.
== END 2023-12-30 12:15 | disposition home or self-care (01) ==
LOC: CHSIMG 12:17
PROVIDERS: PCP Internal Medicine; Visit Provider Internal Medicine
DX: Z12.31 Encounter for screening mammogram for malignant neoplasm of breast (principal); R91.1 Solitary pulmonary nodule
CPT/HCPCS: 71250; 77063; 77067

== ENCOUNTER 2024-06-02 06:52 | Outpatient (CLI) | payer BC, SELFPAY ==
[2024-06-02 07:12] LABS: Add Urine Microscopic? NO; Appearance Urine Clear (Clear); Basophils Absolute Auto 0.07 K/mm3 (0.00-0.10); Basophils Percent Auto 0.8 % (0.0-1.0); Bilirubin Urine Negative (Negative); Blood Urine Negative (Negative); Color Urine Yellow (Yellow); Eosinophils Absolute Auto 0.14 K/mm3 (0.02-0.50); Eosinophils Percent Auto 1.5 % (1.0-6.0); Glucose Urine UA Negative (Negative); Hematocrit 42.1 % (35.0-49.0); Hemoglobin 13.7 g/dL (12.0-15.0); Immature Granulocyte Absolute 0.05 K/mm3 (0.00-0.00); Immature Granulocyte Percent A 0.5 % (0.0-0.0); Ketones Urine Negative (Negative); Leukocyte Esterase Ur Negative LEU/UL (Negative); Lymphocytes Absolute Auto 2.28 K/mm3 (1.10-4.50); Lymphocytes Percent Auto 24.5 % (18.0-42.0); Mean Corpuscular HGB Conc 32.5 g/dL (32-36); Mean Corpuscular Hemoglobin 31.1 pg (27.0-31.0); Mean Corpuscular Volume 95.7 fL (78.0-102.0); Mean Platelet Volume 9.4 fl (9.2-11.8); Monocytes Absolute Auto 0.54 K/mm3 (0.10-0.90); Monocytes Percent Auto 5.8 % (2.0-11.0); Neutrophils Absolute Auto 6.24 K/mm3 (1.70-7.20); Neutrophils Percent Auto 66.9 % (50.0-70.0); Nitrate Urine Negative (Negative); Platelet Count Result 295 K/mm3 (150-420); Protein Urine Negative (Negative); Red Cell Distribution Width 14.6 % (11.6-14.4); Specific Grav Ur >= 1.030 (1.010-1.020); Urobilinogen Urine 0.2 mg/dL (0.2-1.0); White Blood Count 9.3 K/mm3 (4.8-10.8)
[2024-06-02 08:02] LABS: Alanine Aminotransferase 25 U/L (14-59); Albumin Level 3.7 g/dL (3.4-5.0); Alkaline Phosphatase 71 U/L (46-116); Anion Gap 10 mmol/L (4-12); Aspartate Amino Transferase 12 U/L (15-37); Bilirubin,Total 0.2 mg/dL (0.00-1.00); Blood Urea Nitrogen 13 mg/dL (7-18); Calcium 8.8 mg/dL (8.5-10.1); Carbon Dioxide 26 mmol/L (21-32); Chloride 102 mmol/L (98-108); Cholesterol 188 mg/dL (0-200); Creatine Kinase 41 U/L (26-192); Estimated Glomerular Filt Rate > 60; Glucose 112 mg/dL (70-99); HDL Direct 55 mg/dL (40-60); LDL Cholesterol Calculated 53 mg/dL (<130); Osmolality Calculated 287 mOsm/kg (285-295); Potassium 3.8 mmol/L (3.5-5.1); Sodium 138 mmol/L (136-145); Total Protein 6.9 g/dL (6.4-8.2); Triglycerides 400 mg/dL (0-150)
[2024-06-02 08:45] LABS: LDL Cholesterol Direct 152 mg/dL (0-130)
[2024-06-02 09:28] LABS: Hemoglobin A1C 5.6 % (<5.7)
[2024-06-03 14:39] LABS: Immunoglobulin A 266 mg/dL (47-310); Immunoglobulin G 489 mg/dL (600-1640)
[2024-06-04 06:17] LABS: Vitamin D 25 Hydroxy 36 ng/mL (30-100)
== END 2024-06-02 06:53 | disposition home or self-care (01) ==
LOC: CHSLAB 06:55
PROVIDERS: PCP Internal Medicine; Visit Provider Internal Medicine
DX: I10 Essential (primary) hypertension (principal); D80.9 Immunodeficiency with predominantly antibody defects, unspecified; E78.2 Mixed hyperlipidemia; R73.01 Impaired fasting glucose; N39.0 Urinary tract infection, site not specified; E55.9 Vitamin D deficiency, unspecified; R53.83 Other fatigue
CPT/HCPCS: 36415; 80053; 80061; 81003; 82306; 82550; 82784; 83036; 83721; 85025

== ENCOUNTER 2024-07-22 12:23 | Outpatient (CLI) | payer BC, SELFPAY ==
--- NOTE | ~2024-07-22 | US_ITS ---
EXAMINATION: US thyroid DATE: 07/22/2024 12:45 INDICATION: Thyromegaly. TECHNIQUE: Multiple ultrasound images of the thyroid were obtained. COMPARISON: None. FINDINGS: The right thyroid lobe measures 3.5 x 1.0 x 0.9 cm. The left thyroid lobe measures 3.5 x 1.3 x 1.3 c m. In the right thyroid lobe, there is a 3 mm cystic nodule (TI-RADS TR1). IMPRESSION: 1. Small benign thyroid nodule. No follow-up is needed. Reviewed, dictated and finalized at location A.
== END 2024-07-22 12:24 | disposition home or self-care (01) ==
LOC: CHSIMG 12:24
PROVIDERS: PCP Internal Medicine; Visit Provider Internal Medicine
DX: E01.0 Iodine-deficiency related diffuse (endemic) goiter (principal)
CPT/HCPCS: 76536

== ENCOUNTER 2025-01-04 07:33 | Outpatient (CLI) | payer BC, SELFPAY ==
--- NOTE | ~2025-01-04 | MM_ITS ---
EXAMINATION: MM screening leidy BI w cristel HISTORY: Screening TECHNIQUE: Craniocaudal and mediolateral oblique 3-D tomosynthesis images were obtained and synthetic 2-D images were generated. CAD analysis was submitted and interpreted. COMPARISON: Comparison to multiple prior studies sequentially, with oldest reviewed study dated 12/13. BREAST PARENCHYMAL COMPOSITION: Not dense: There are scattered areas of fibroglandular density. FINDINGS: There is no evidence of suspicious mass, calcification, or architectural distortion to sugg est malignancy in either breast. There has been no suspicious interval change. IMPRESSION: 1. No mammographic evidence of malignancy. 2. Recommend routine screening mammography in one year. BI-RADS Category 1: Negative Reviewed, dictated and finalized at location B.
--- OUTSIDE RECORDS SUMMARY | 2025-01-04 07:36 | XMS_ITS | Clinical Summary ---
Author Organization [facility] Address [address] [place] [address] Care Team Providers Care Emergency Manager Name Role Phone Olena Betancourt MD Primary Care Provider [phone] Mario Alberto Lopez MD Unavailable Unavailabl e Allergies No known active allergies Medications amlodipine 5 MG tablet Take 5 mg by mouth daily. Active citalopram 40 MG tablet Take 40 mg by mouth daily. Active fluticasone propionate 50 MCG/ACT nasal spray 2 sprays by Each Nostril route nightly at bedtime. Active lisinopril-hydr ochlorothiazide 20-12.5 MG tablet Take 2 tablets by mouth daily. Active potassium chloride 10 MEQ Tab CR tablet Take 1 tablet by mouth daily. Active loratadine (CLARITIN) 10 MG tablet Take 10 mg by mouth daily. Active PROAIR HFA 108 (90 Base) MCG/ACT inhaler 0 11/04/2018 Act freddy amoxicillin-cla vulanate 875-125 MG tablet 0 10/24/2018 Active levofloxacin 500 MG tablet 0 11/04/2018 Activ e predniSONE 10 mg tablet 0 11/04/2018 Active aspirin EC (ASPIRIN) 81 MG EC tablet Take 81 mg by mouth daily. Active Active Problems Problem Noted Date Diagnosed Date Abnormal echocardiogram 12/10/2018 Benign essential HTN 12/10/2018 Abnormal EKG 11/12/2018 Sinus infection Chest pain Family History Medical History Relation Comments Lung Cancer Father Diabetes Mother Hypertension Mother CABG Sister COPD Sister Hypertension Sister Thyroid Disease Sister Relation Status Comments Father Mother Sister Social History Tobacco Use Types Packs/Day Years Used Date Smoking Tobacco: Every Day Cigarettes Smokeless Tobacco: Never Alcohol Use Standard Drinks/Week Comments Yes 0 (1 standard drink = 0.6 oz pur e alcohol) Comments Unknown Sex and Gender Information Value Date Recorded Sex Assigned at Not on file Legal Sex Female 10:47 PM RERECORDING MIXER Gender Identity Not on file Sexual Orientation Not on file 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 Not on file Not on file Last Filed Vital Signs Vital Sign Reading Time Taken Comments Blood Pressure 122/74 11/12/2018 1:52 PM RERECORDING MIXER Pulse 88 11/12/2018 1:52 PM RERECORDING MIXER Temperature - - Respiratory Rate - - Oxygen Saturation - - Inhaled Oxygen Concentration - - Weight 72.1 kg (159 lb) 11/23/2018 2:13 PM RERECORDING MIXER Height 157.5 cm (5' 2 ) 11/23/2018 2:13 PM RERECORDING MIXER Body Mass Index 29.08 11/23/2018 2:13 PM RERECORDING MIXER Plan of Treatment Health Maintenance Due Date Last Done Comments Cervical Cancer Screening Pa p Smear (Age 30 to 64) Every 3 Years 1970 Colorectal Cancer Screening Colonoscopy (10 Years) 1970 Annual Physical 1973 Pneumococcal Vaccine: Pediatrics (0 to 5 Years) and At-Risk Patients (6 to 64 Years) (1 of 2 - PCV) 1976 Hepatitis C 1988 DTaP, Tdap and Td Vaccines ( 1 - Tdap) 1989 Hepatitis B Vaccines (1 of 3 - 19+ 3-dose series) 1989 Cervical Cancer Screening Pa p with HPV Testing (Age 30 to 64) Every 5 Years 2000 Cervical Cancer Screening wi th HPV 2000 Zoster Vaccines (1 of 2) 2020 Mammogram Screening 12/11/2022 12/11/2020, 10/21/2019, 10/01/2018 COVID-19 Vaccine ( - 2023-2 5 season) 2024 Influenza Adult (#1) 2024 09/07/2018 Meningococcal B Vaccine Aged Out No l onger eligible based on patient's age to complete this topic Meningococcal Vaccine Aged Out No eddie arnav eligible based on patient's age to complete this topic RSV Immunizations Under 20 Months Aged Out No longer eligible b ased on patient's age to complete this topic Procedures Procedure Name Priority Date/Time Associated Diagnosis Comments MG SCREENING W MAREK EL DIGI Routine 12/11/2020 11:42 AM RERECORDING MIXER Screening mammogram, encounter for from Last 3 Months or Most Recently Relevant to Health Maintenance Results * MG SCREENING W MAREK EL DIGI (12/11/2020 11:42 AM RERECORDING MIXER) Anatomical Region Laterality Modality Breast Bilateral Mammography 12/12/2020 9:45 AM RERECORDING MIXER Impressions 12/13/2020 12:36 PM RERECORDING MIXER IMPRESSION: No interval features to suggest malignancy. In the absence of clinical symptoms, return for annual screening due in one year. RECOMMENDATION: Routine Screening, BILATERAL in 1 year ASSESSMENT: ACR BI-RADS 1 - NEGATIVE The attending radiologist has reviewed the image(s) and agrees with the content of this report. Study presented for final attending interpretation on 12/13/20. Referred By: BRIANNA PHILLIPS Interpreted By: Awais Perez, 12/12/2020 9:45 AM!01/18. Narrative 12/13/2020 12:36 PM RERECORDING MIXER EXAMINATION: BILATERAL SCREENING MAMMOGRAPHY CLINICAL INDICATION: 50 years of age female routine screening. Known history of cyst(s). COMPARISON: Screening mammogram(s) 11/08, 10/06, 10/05 TECHNIQUE: Digital CC & MLO views. Tomosynthesis imaging acquisition Study read with the assistance of a computer-aided detection system. TISSUE DENSITY: There are scattered areas of fibroglandular density. FINDINGS: Presence of scattered but nodular breast tissue pattern slightly decreases mammographic sensitivity. Scattered calcifications. Stable asymmetric nodular parenchymal patches along with fluctuant waxing and waning nodules, several of the latter compatible with known history of cysts. These appear either stable, resolved, or smaller when compared to previous studies dating back to 09/04 when accounting for differences in technique. At least one of the nodules has appearance of a stable benign morphology lymph node. No suspicious grouping of microcalcifications, architectural distortion, or new dominant suspicious nodule 3 dimensionally demonstrated in either breast. Brianna Phillips MD MAMMO Final Resu lt from Last 3 Months or Most Recently Relevant to Health Maintenance Insurance [employer]ID [place] Care Teams Emergency Manager Relationship Specialty Start Date End Date Olena Betancourt MD [address] [place] [address] PCP - General INTERNAL MEDICINE 09/22/18 Mario Alberto Lopez MD [address] [place] [address] Consulting Physician CARDIOVASCULAR DISEASE 11/12/18
--- OUTSIDE RECORDS SUMMARY | 2025-01-04 07:36 | XMS_ITS | Encounter Summary ---
Author Organization [facility] Address [address] [place] [address] Care Team Providers Care Sausage Smoker Name Role Phone Olena Betancourt MD Primary Care Provider [phone] Mario Alberto Lopez MD Unavailable Unavailabl e Encounter Details Date Type Department Care Team (Late st Contact Info) Description 11/10/2018 Abstract [facility] [address] [place] [id number] Mario Alberto Lopez MD Social History Tobacco Use Types Packs/Day Years Used Date Smoking Tobacco: Every Day Cigarettes Alcohol Use Standard Drinks/Week Comments Yes 0 (1 standard drink = 0.6 oz pur e alcohol) Comments Unknown Sex and Gender Information Value Date Recorded Sex Assigned at Not on file Legal Sex Female 10:47 PM 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 Gender Identity Not on file Sexual Orientation Not on file 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
== END 2025-01-04 07:34 | disposition home or self-care (01) ==
PROVIDERS: PCP Internal Medicine; Visit Provider Obstetrics & Gynecology
DX: Z12.31 Encounter for screening mammogram for malignant neoplasm of breast (principal)
CPT/HCPCS: 77063; 77067

== ENCOUNTER 2025-01-10 07:08 | Outpatient (CLI) | payer BC, SELFPAY ==
--- OUTSIDE RECORDS SUMMARY | 2025-01-10 07:13 | XMS_ITS | Clinical Summary ---
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 Not on file Not on file Last Filed Vital Signs Vital Sign Reading Time Taken Comments Blood Pressure 122/74 11/12/2018 1:52 PM CORN CUTTER Pulse 88 11/12/2018 1:52 PM CORN CUTTER Temperature - - Respiratory Rate - - Oxygen Saturation - - Inhaled Oxygen Concentration - - Weight 72.1 kg (159 lb) 11/23/2018 2:13 PM CORN CUTTER Height 157.5 cm (5' 2 ) 11/23/2018 2:13 PM CORN CUTTER Body Mass Index 29.08 11/23/2018 2:13 PM CORN CUTTER Plan of Treatment Health Maintenance Due Date [...] MAREK EL DIGI Routine 12/11/2020 11:42 AM CORN CUTTER Screening mammogram, encounter for from Last 3 Months or Most Recently Relevant to Health Maintenance Results * MG SCREENING W MAREK EL DIGI (12/11/2020 11:42 AM CORN CUTTER) Anatomical Region Laterality Modality Breast Bilateral Mammography 12/12/2020 9:45 AM CORN CUTTER Impressions 12/13/2020 12:36 PM CORN CUTTER IMPRESSION: No interval features to suggest malignancy. [...] 12/12/2020 9:45 AM!01/18. Narrative 12/13/2020 12:36 PM CORN CUTTER EXAMINATION: BILATERAL SCREENING MAMMOGRAPHY CLINICAL INDICATION: 50 [...] Health Maintenance Insurance MEDICAID [employer] Care Teams Pipe Finisher Relationship Specialty Start Date End Date Olena Betancourt MD [address] [place] [address] PCP - General INTERNAL MEDICINE 09/22/18 Mario Alberto Lopez MD [address] [place] [address] Consulting Physician CARDIOVASCULAR DISEASE 11/12/18
--- OUTSIDE RECORDS SUMMARY | 2025-01-10 07:13 | XMS_ITS | Continuity of Care Document ---
Author Organization [facility], [place] Address [address] [place] [address] Phone Care Team Providers Care Electron Beam Operator Name Role Phone Oberreiter OD, Cindy Unavailable Unavailabl e Allergies, Adverse Reactions, Alerts Substance Reaction Status Criticality No Known Drug Allergies Active No I nformation Medications Medication Instructions Dosage Effective Dates (start - stop) Status Comments Artificial Tears (PF) 0.1 %-0.3 % drops in a dropperette - Active aspirin 81 mg tablet,delayed release take 1 tablet by oral route every day 81 MG - Active folic acid 800 mcg tablet take 1 tablet by oral route every day 0.8 MG - Active Flovent Diskus 50 mcg/actuation powder for inhalation inhale 1 puff by inhalation route 2 times every day - Active amlodipine 5 mg tablet take 1 tablet by oral route every day 5 MG - Active citalopram 40 mg tablet take 1 tablet by oral route every day 40 MG - Active lisinopril 20 mg-hydrochlorothiaz ally 12.5 mg tablet take 1 tablet by oral route every day 1.00 tablet - Active MULTIVITAMINS (unknown strength) Not Available - Active FLONASE (unknown strength) Not Available - Active CELEXA (unknown strength) Not Available - Active Zaditor 0.025 % (0.035 %) eye drops 1 drop OU PRN - No Longer Active LISINOPRIL (unknown strength) Not Available - No Longer Active Procedures Procedure Date REFRACTION EYE EXAM ESTABLISHED PATIENT EYE EXAM, NEW PATIENT MEDICAL 6 REFRACTION OPTIONAL UPDATE Advance Directives Directive Yes / No Effective Date File Name No Information Encounters Encounter Description Practice Location Reason(s) For Visit Diagnoses Date Provider Providers Copied on Encounter [facility], [facility], [address] [place] [address], [id number] , tel:[phone] [facility] decreased vision (chief complaint)d ecreased vision (chief complaint) Hypermetropia, left eyePresbyopiaBilat eral keratoconjunctivit is sicca, not specified as Sjogren's 9 Oberreiter Cindy. [address], [place], [place], [id number], [place]. tel:[phone] [facility], [facility], [address] [place] [address], [id number] , tel:[phone] [facility] difficulty adjusting to current glasses (chief complaint)d ifficulty adjusting to current glasses (chief complaint) Presbyopia 6 Oberreiter Cindy. [address], [place], [place], [id number], [place]. tel:[phone] Family History Family Member Type Diagnosis Age At Onset Problem (finding) No family history of Ca taracts Problem (finding) No family history of Gl aucoma Problem (finding) No family history of Di abetes mellitus Mother Problem (finding) hypertension Problem (finding) No family hist ory of Macular degeneration Payers Payer name Insurance type Covered constitution party ID Authorkasha tileslie(s) P CI [id number] Social History Type Description Quantity Date Captured Comments Alcohol Use Details Unknown Caffeine Use Details Unknown Tobacco Use Status Occasional cigarette smoker Smoking Status Current some day smoker Smoking Tobacco Use Details Cigarette: No Details Available Cigarette: No Details Available Sex Female Chief Complaint And Reason For Visit From encounter dated '06/23/2019 15:30'. decreased vision (chief complaint) decreased vision (chief complaint) Reason For Referral Reason For Referral No Information Plan Of Treatment Date Type Action Status Goal Tobacco cessation counseling completed History Of Present Illness Encounter Date Complaint History Of Prese nt Illness decreased vision The 48 Year old female presents for F/U Presbyopia OU. Pt reports decreased vision in the right eye and left eye since last exam. It affects both near and far vision OU c gls. 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 She states this has become difficult for her lately. The patient denies pain but states she has itchy, dry eyes. Using OTC AT QD OU but she states she would like to start using prescription eye drops to help. difficulty adjusting to current glasses The 46 Year old female presents for evaluation of difficulty adjusting to current glasses in the left > right eye. It started about 1 year(s) ago. It affects both near and far vision. It occurs constantly. The condition is not any better. The patient denies pain or discomfort. Uses Zaditor OU PRN. Reports that some mornings her left pupil is noteably larger than right. Functional Status Date Functional Assessmen t No Information Instructions Date Instruction Additional Infor mation Impression/Plan Impression/Plan - 1. opt gls rx update avail2. Cornea is healthy, vision and IOP are good and stable3. Back of the eye looks good, no retinal tears or hole's. No glc/ARMD4. Explained do not see a neurological reason for patient to awake with uneven pupil size. Feels like it could be pharmacutically induced. Patient instructed to monitor closely Follow up - Return i n 1 year with [facility] for Refract T & D. Assessments Type Assessment Date assessment Hypermetropia, left eye 019 assessment Presbyopia assessment Bilateral keratoconj unctivitis sicca, not specified as Sjogren's Patient Care Teams Name Effective Dates (start - stop) Status Members No Information
--- OUTSIDE RECORDS SUMMARY | 2025-01-10 07:13 | XMS_ITS | Encounter Summary ---
Author Organization [facility] Address [address] [place] [address] Care Team Providers Care Art Gallery Internship Name Role Phone Olena Betancourt MD Primary Care Provider [phone] Mario Alberto Lopez MD Unavailable Unavailabl e Encounter Details Date Type Department Care Team (Late st Contact Info) Description 11/10/2018 Abstract [facility] [address] [place] [id number] Mario Alberto Lopez MD Social History Tobacco Use Types Packs/Day Years Used Date Smoking Tobacco: Every Day Cigarettes Alcohol Use Standard Drinks/Week Comments Yes 0 (1 standard drink = 0.6 oz pur e alcohol) Comments Unknown Sex and Gender Information Value Date Recorded Sex Assigned at Not on file 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 Gender Identity Not on file Sexual Orientation Not on file 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
[2025-01-10 07:30] LABS: Add Urine Microscopic? YES; Basophils Absolute Auto 0.08 K/mm3 (0.00-0.10); Basophils Percent Auto 0.7 % (0.0-1.0); Bilirubin Urine Negative (Negative); Blood Urine 3+ (Negative); Color Urine Light Yellow (Yellow); Eosinophils Absolute Auto 0.13 K/mm3 (0.02-0.50); Eosinophils Percent Auto 1.1 % (1.0-6.0); Glucose Urine UA Negative (Negative); Hematocrit 45.1 % (35.0-49.0); Hemoglobin 14.5 g/dL (12.0-15.0); Immature Granulocyte Absolute 0.05 K/mm3 (0.00-0.00); Immature Granulocyte Percent A 0.4 % (0.0-0.0); Ketones Urine Negative (Negative); Leukocyte Esterase Ur Negative LEU/UL (Negative); Lymphocytes Absolute Auto 3.11 K/mm3 (1.10-4.50); Lymphocytes Percent Auto 26.7 % (18.0-42.0); Mean Corpuscular HGB Conc 32.2 g/dL (32-36); Mean Corpuscular Hemoglobin 31.7 pg (27.0-31.0); Mean Corpuscular Volume 98.7 fL (78.0-102.0); Mean Platelet Volume 9.5 fl (9.2-11.8); Monocytes Absolute Auto 0.76 K/mm3 (0.10-0.90); Monocytes Percent Auto 6.5 % (2.0-11.0); Neutrophils Percent Auto 64.6 % (50.0-70.0); Nitrate Urine Negative (Negative); Platelet Count Result 332 K/mm3 (150-420); Protein Urine Negative (Negative); Red Blood Count 4.57 M/mm3 (4.20-5.40); Red Cell Distribution Width 13.6 % (11.6-14.4); Urobilinogen Urine 0.2 mg/dL (0.2-1.0); White Blood Count 11.6 K/mm3 (4.8-10.8); pH Urine 5.5 (5.0-8.0)
[2025-01-10 07:39] LABS: RBC Urine 21-50 /hpf (0-2); WBC Urine None seen /hpf (0-3)
[2025-01-10 07:40] LABS: Appearance Urine Sl Cloudy (Clear); Bacteria Urine Rare /hpf; Squamous Epithelial Cell Urine Many /hpf (Few)
[2025-01-10 07:41] LABS: Hemoglobin A1C 5.3 % (<5.7)
[2025-01-10 08:17] LABS: Alanine Aminotransferase 17 U/L (14-59); Albumin Level 3.9 g/dL (3.4-5.0); Alkaline Phosphatase 80 U/L (46-116); Anion Gap 14 mmol/L (4-12); Aspartate Amino Transferase < 10 U/L (15-37); Bilirubin,Total 0.4 mg/dL (0.00-1.00); Blood Urea Nitrogen 18 mg/dL (7-18); Carbon Dioxide 27 mmol/L (21-32); Chloride 97 mmol/L (98-108); Cholesterol 189 mg/dL (0-200); Creatine Kinase 35 U/L (26-192); Estimated Glomerular Filt Rate 52; Free T4 Free Thyroxine 1.13 ng/dL (0.76-1.46); Glucose 106 mg/dL (70-99); HDL Direct 78 mg/dL (40-60); LDL Cholesterol Calculated 36 mg/dL (<130); Osmolality Calculated 287 mOsm/kg (285-295); Potassium 3.6 mmol/L (3.5-5.1); Sodium 138 mmol/L (136-145); Thyroid Stimulating Hormone 3.68 uIU/mL (0.36-3.74); Total Protein 7.5 g/dL (6.4-8.2); Triglycerides 375 mg/dL (0-150)
[2025-01-10 08:28] LABS: Free T3 3.06 pg/mL (2.18-3.98)
[2025-01-12 01:58] LABS: Vitamin D 25 Hydroxy 31 ng/mL (30-100)
[2025-01-12 03:09] LABS: Immunoglobulin A 303 mg/dL (47-310); Immunoglobulin G 522 mg/dL (600-1640)
== END 2025-01-10 07:09 | disposition home or self-care (01) ==
LOC: CHSLAB 07:11
PROVIDERS: PCP Internal Medicine; Visit Provider Internal Medicine
DX: I10 Essential (primary) hypertension (principal); E78.2 Mixed hyperlipidemia; R73.01 Impaired fasting glucose; E03.4 Atrophy of thyroid (acquired); N39.0 Urinary tract infection, site not specified; R53.83 Other fatigue; E55.9 Vitamin D deficiency, unspecified; D80.9 Immunodeficiency with predominantly antibody defects, unspecified
CPT/HCPCS: 36415; 80053; 80061; 81001; 82306; 82550; 82784; 83036; 84439; 84443; 84481; 85025

== ENCOUNTER 2025-01-20 09:14 | Outpatient (CLI) | payer BC, SELFPAY ==
--- NOTE | ~2025-01-20 | CT_ITS ---
CT Scan of the Chest without Contrast: Clinical Indication: Pulmonary nodule Technique: Contiguous sections were acquired throughout the chest without intravenous contrast. Dose reduction technique was used on this scan by utilizing automated exposure control and iterative recon struction technique. The dose-length product (DLP) was 154.60 mGy-cm. COMPARISON: 12/30/2023 Findings: There is no evidence of any significant mediastinal, hilar or axillary lymphadenopathy. The mediastin al soft tissues appear normal. There is no evidence of pleural or pericardial effusion. Stable calcified right upper lobe granuloma. There is minimal emphysema. Stable 8 mm right middle lob e nodule (image 78). Images through the upper abdomen reveal no abnormalities. Impression: Stable 8 mm right middle lobe nodule. Minimal emphysema. Reviewed, dictated and finalized at location . Impression: Stable 8 mm right middle lobe nodule. Minimal emphysema.
--- NOTE | ~2025-01-20 | CT_ITS ---
CLINICAL INDICATION: Left flank pain 2 weeks earlier COMPARISON: 03/07/2023. TECHNIQUE: Multiple contiguous axial images of the abdomen and pelvis were performed without the admi nistration of intravenous contrast The dose-length product (DLP) was 213.37 mGy-cm. Automated exposure control and iterative reconstruction technique were employed. FINDINGS/OBSERVATIONS: Visualized lower thorax: The bilateral lung bases are clear. The heart is of normal size, without pericardial effusion. Small hiatal hernia is present. Liver: The liver demonstrates homogeneous attenuation and is not enlarged. Gallbladder and biliary system: The gallbladder is only minimally distended, and otherwise unremarkable. Pancreas: Limited evaluation of the pancreas secondary to the lack of intravenous contrast. Spleen: The spleen demonstrates homogeneous attenuation and is not enlarged. Kidneys: 2 mm nonobstructing calculus within the upper pole of the right kidney. The remainder of the bilateral kidneys are otherwise unremarkable, without hydronephrosis or renal ca lculi. Adrenal glands: Unremarkable. Gastrointestinal tract: Fecal stasis within the colon. Appendix: The air-filled appendix is of normal caliber (axial series, images 109 through 133). Vasculature: Unremarkable. Lymph nodes: Limited evaluation without intravenous contrast Pelvic structures: The bladder is decompressed, and otherwise unremarkable. The uterus is either surgically absent or markedly atrophic. Body wall and musculoskeletal: Small fat-containing umbilical and supraumbilical hernia. No significant degenerative disease within the lower thoracic or lumbosacral spine. IMPRESSION: No obstructive uropathy. 2 mm calculus within the upper pole of the right kidney. Reviewed, dictated and finalized at location A.
--- OUTSIDE RECORDS SUMMARY | 2025-01-20 09:30 | XMS_ITS | Encounter Summary ---
Author Organization [facility] Address [address] [place] [address] Care Team Providers Care Senior Restaurant Manager Name Role Phone Olena Betancourt MD Primary Care Provider [phone] Mario Alberto Lopez MD Unavailable Unavailabl e Encounter Details Date Type Department Care Team (Late st Contact Info) Description 11/10/2018 Abstract [facility] [address] [place] [phone] Mario Alberto Lopez MD Social History Tobacco Use Types Packs/Day Years Used Date Smoking Tobacco: Every Day Cigarettes Alcohol Use Standard Drinks/Week Comments Yes 0 (1 standard drink = 0.6 oz pur e alcohol) Comments Unknown Sex and Gender Information Value Date Recorded Sex Assigned at Not on file 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 Gender Identity Not on file Sexual Orientation Not on file 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
--- OUTSIDE RECORDS SUMMARY | 2025-01-20 09:30 | XMS_ITS | Clinical Summary ---
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 Not on file Not on file Last Filed Vital Signs Vital Sign Reading Time Taken Comments Blood Pressure 122/74 11/12/2018 1:52 PM [facility] Pulse 88 11/12/2018 1:52 PM [facility] Temperature - - Respiratory Rate - - Oxygen Saturation - - Inhaled Oxygen Concentration - - Weight 72.1 kg (159 lb) 11/23/2018 2:13 PM [facility] Height 157.5 cm (5' 2 ) 11/23/2018 2:13 PM [facility] Body Mass Index 29.08 11/23/2018 2:13 PM [facility] Plan of Treatment Health Maintenance Due Date [...] MAREK EL DIGI Routine 12/11/2020 11:42 AM [facility] Screening mammogram, encounter for from Last 3 Months or Most Recently Relevant to Health Maintenance Results * MG SCREENING W MAREK EL DIGI (12/11/2020 11:42 AM [facility]) Anatomical Region Laterality Modality Breast Bilateral Mammography 12/12/2020 9:45 AM [facility] Impressions 12/13/2020 12:36 PM [facility] IMPRESSION: No interval features to suggest malignancy. [...] 12/12/2020 9:45 AM!01/18. Narrative 12/13/2020 12:36 PM [facility] EXAMINATION: BILATERAL SCREENING MAMMOGRAPHY CLINICAL INDICATION: 50 [...] Health Maintenance Insurance MEDICAID [place] Care Teams Shipfitter Helper Relationship Specialty Start Date End Date Olena Betancourt MD [address] [place] [address] PCP - General INTERNAL MEDICINE 09/22/18 Mario Alberto Lopez MD [address] [place] [address] Consulting Physician CARDIOVASCULAR DISEASE 11/12/18
--- OUTSIDE RECORDS SUMMARY | 2025-01-20 09:30 | XMS_ITS | Continuity of Care Document ---
Author Organization [facility], [facility] Address [address] [place] [address] Phone Care Team Providers Care Shredded Filler Cutter Operator Name Role Phone Oberreiter OD, Cindy Unavailable Unavailabl e Allergies, Adverse Reactions, Alerts Substance Reaction Status Criticality No Known Drug Allergies Active No I nformation Medications Medication Instructions Dosage Effective Dates (start - stop) Status Comments lisinopril 20 mg-hydrochlorothiaz ally 12.5 mg tablet take 1 tablet by oral route every day 1.00 tablet - Active citalopram 40 mg tablet take 1 tablet by oral route every day 40 MG - Active amlodipine 5 mg tablet take 1 tablet by oral route every day 5 MG - Active Flovent Diskus 50 mcg/actuation powder for inhalation inhale 1 puff by inhalation route 2 times every day - Active folic acid 800 mcg tablet take 1 tablet by oral route every day 0.8 MG - Active aspirin 81 mg tablet,delayed release take 1 tablet by oral route every day 81 MG - Active Artificial Tears (PF) 0.1 %-0.3 % drops in a dropperette - Active MULTIVITAMINS (unknown strength) Not Available [...] Diagnoses Date Provider Providers Copied on Encounter [facility], [facility], [address] [place] [address], [id number] , tel:[phone] [facility] decreased vision (chief complaint)d ecreased vision (chief complaint) Hypermetropia, left eyePresbyopiaBilat eral keratoconjunctivit is sicca, not specified as Sjogren's 9 Oberreiter Cindy. [address], [place], [place], [id number], [place]. tel:[phone] [facility], [facility], [address] [place] [address], [id number] , tel:[phone] [facility] difficulty adjusting to current glasses (chief complaint)d ifficulty adjusting to current glasses (chief complaint) Presbyopia 6 Oberreiter Cindy. [address], [place], [place], [id number], [place]. tel:[phone] Family History Family Member Type Diagnosis Age At Onset Problem (finding) No family history of Gl aucoma Problem (finding) No family history of Ca taracts Problem (finding) No family history of Di abetes mellitus Mother Problem (finding) hypertension Problem (finding) No family hist ory of Macular degeneration Payers Payer name Insurance type Covered democrat ID Authoriza tileslie(s) P CI [id number] Social History Type [...]
[2025-01-20 09:53] LABS: Add Urine Microscopic? NO; Appearance Urine Clear (Clear); Bilirubin Urine Negative (Negative); Blood Urine Negative (Negative); Color Urine Yellow (Yellow); Glucose Urine UA Negative (Negative); Ketones Urine Negative (Negative); Leukocyte Esterase Ur Negative (Negative); Nitrate Urine Negative (Negative); Protein Urine Negative (Negative)
[2025-01-20 12:30] LABS: Alanine Aminotransferase 32 U/L (14-59); Albumin Level 3.7 g/dL (3.4-5.0); Alkaline Phosphatase 64 U/L (46-116); Anion Gap 13 mmol/L (4-12); Aspartate Amino Transferase 14 U/L (15-37); Bilirubin,Total 0.2 mg/dL (0.00-1.00); Blood Urea Nitrogen 9 mg/dL (7-18); Calcium 9.3 mg/dL (8.5-10.1); Carbon Dioxide 26 mmol/L (21-32); Chloride 105 mmol/L (98-108); Estimated Glomerular Filt Rate > 60; Glucose 77 mg/dL (70-99); Osmolality Calculated 295 mOsm/kg (285-295); Potassium 4.3 mmol/L (3.5-5.1); Sodium 144 mmol/L (136-145)
[2025-01-21 14:03] LABS: Parathyroid Intact 52 pg/mL (16-77)
[2025-01-21 15:08] LABS: Ionized Calcium 5.1 mg/dL (4.7-5.5)
== END 2025-01-20 09:15 | disposition home or self-care (01) ==
PROVIDERS: PCP Internal Medicine; Visit Provider Internal Medicine
DX: R91.1 Solitary pulmonary nodule (principal); R31.9 Hematuria, unspecified; E83.52 Hypercalcemia; N20.0 Calculus of kidney; J43.9 Emphysema, unspecified
CPT/HCPCS: 36415; 71250; 74176; 80053; 81003; 82330; 83970; 88112